=== PATIENT | male | born 1950 | race Caucasian/White ===

== ENCOUNTER → 2017-01-18 13:41 | Outpatient (CLI) | payer MEDICARE, OTHER ==
[2016-10-24 06:59] VITALS: BMI 37.0
[~2017-01-18 13:41] MED LIST: ARAVA10 MG PO; COZAAR100 MG PO; DITROPAN X10 MG/BOTT PO; DULERA 100 MCG8.8 GM INH; FLOMAX0.4 MG PO; FLUTICASONE PRO16 GM NASAL; FOLIC ACID1 MG PO; GLIMEPIRIDE2 MG PO; GLUCOPHAGE1000 MG PO; GLUCOPHAGE500 MG PO; IMODIUM 22 MG/10 ML PO; K-TAB10 MEQ PO; LASIX40 MG PO; SINGULAIR10 MG PO; TIROSINT50 MCG PO
== END | disposition home or self-care (01) ==
LOC: D.RAD 13:41
DX: R91.8 Other nonspecific abnormal finding of lung field (principal)

== ENCOUNTER → 2017-01-20 12:03 | Outpatient (CLI) | payer MEDICARE, OTHER ==
[2016-10-24 06:59] VITALS: BMI 37.0
== END | disposition home or self-care (01) ==
LOC: D.RAD 12:03
DX: M19.072 Primary osteoarthritis, left ankle and foot (principal)

== ENCOUNTER 2017-01-24 09:07 | Outpatient (CLI) | payer MEDICARE, OTHER ==
[~2017-01-24] VITALS: Ht 185.4 cm; Wt 120.5 kg
[2017-01-24 09:42] VITALS: BP 149/69; Ht 185.4 cm; Wt 120.5 kg
[2017-01-24 09:57] LABS: HEMATOCRIT 38.2 % (42.0-54.0); HEMOGLOBIN 12.9 g/dL (13.5-17.5); MCH 26.2 pg (26.0-34.0); MCHC 33.8 g/dL (31.0-37.0); MCV 77.5 fL (80.0-100.0); MEAN PLATELET VOLUME 8.2 fL (7.4-10.4); PLATELET COUNT 206 10x3/uL (130-400); RBC 4.93 10x6/uL (4.20-6.10); RDW 15.6 % (11.5-14.5); WBC 8.9 10x3/uL (4.8-10.8)
[2017-01-24 10:31] LABS: APTT 29.8 SECONDS (22.8-39.4); INR 1.06 (0.85-1.17); PROTIME 13.7 SECONDS (11.6-15.0)
[2017-01-24 10:43] LABS: EOSINOPHILS 2 % (0-7); LYMPHOCYTES 14 % (15-50); MONOCYTES 10 % (2-11); NEUTROPHILS 74 % (40-80)
[2017-01-24 11:13] LABS: PLATELET ESTIMATE NORMAL
--- NOTE | 2017-01-24 11:26 | NUR ---
1100-RECEIVED PT FROM ENDO LAB. PT SLEEPY BUT AROUSES TO VERBAL STIMULI. PY ON 2L VIA NC POX 96%. PT REMAINS NPO FOR THE NEXT 2 HOURS. PT DENEIS ANY NEEDS OR CONCERNS AT THIS TIME
--- NOTE | 2017-01-24 12:12 | NUR ---
1150 RECEIVED REPORT FROM ORLANDO RIVERA RN. PT SLEEPING. O2 AT 2L/NC VIA OXIMIZER. PT. SLEEPING WITH SNORING. HOB ELEVATED 30 DEGREES. HAS BEEN NPO. CALL LIGHT AT BEDSIDE. MONITORS ON.
--- NOTE | 2017-01-24 14:23 | NUR ---
1420 DC INSTS. REVIEWED VOICED UNDERSTANDING, RELEASED IN WC WITH ESCORT.
[2017-01-25 14:22] LABS: FUNGUS STAIN Final report (())
[2017-01-25 14:22] LABS: FUNGUS STAIN Final report (())
[2017-01-25 15:23] LABS: AFB SPECIMEN PROCESSING Not Indicated (())
[2017-01-25 15:23] LABS: AFB SPECIMEN PROCESSING Concentration (())
[2017-02-21 08:19] LABS: FUNGUS MYCOLOGY CULTURE Final report (())
[2017-02-21 08:19] LABS: FUNGUS MYCOLOGY CULTURE Final report (())
[2017-03-19 14:09] LABS: ACID FAST CULTURE Negative (()); ACID FAST SMEAR Negative (())
[2017-03-19 14:09] LABS: ACID FAST CULTURE Negative (()); ACID FAST SMEAR Negative (())
== END 2017-01-24 14:26 | disposition home or self-care (01) ==
LOC: D.OPS 09:07
PROVIDERS: Internal Medicine Pulmonary Disease
DX: J98.4 Other disorders of lung (principal); G47.33 Obstructive sleep apnea (adult) (pediatric); Z77.090 Contact with and (suspected) exposure to asbestos; J45.998 Other asthma; J44.9 Chronic obstructive pulmonary disease, unspecified; E11.9 Type 2 diabetes mellitus without complications; I10 Essential (primary) hypertension; E03.9 Hypothyroidism, unspecified; M25.572 Pain in left ankle and joints of left foot; E66.9 Obesity, unspecified; Z79.84 Long term (current) use of oral hypoglycemic drugs; Z79.899 Other long term (current) drug therapy; Z68.35 Body mass index [BMI] 35.0-35.9, adult

== ENCOUNTER → 2017-04-13 12:40 | Outpatient (CLI) | payer MEDICARE, OTHER ==
[2017-01-24 09:42] VITALS: BMI 35.0
== END | disposition home or self-care (01) ==
LOC: D.RAD 12:40
DX: J45.909 Unspecified asthma, uncomplicated (principal)

== ENCOUNTER → 2018-02-15 07:15 | Outpatient (CLI) | payer MEDICARE, OTHER ==
[2017-01-24 09:42] VITALS: BMI 35.0
== END | disposition home or self-care (01) ==
LOC: D.RT 02-06 09:00 → D.CT 02-06 10:00 → D.RT 07:15
DX: J45.909 Unspecified asthma, uncomplicated (principal)

== ENCOUNTER → 2018-04-18 11:00 | Outpatient (CLI) | payer MEDICARE, OTHER ==
[2017-01-24 09:42] VITALS: BMI 35.0
[2018-04-22 10:08] LABS: FUNGAL - ASP FLAVUS Negative (Neg:<1:1); FUNGAL - ASP NIGER Negative (Neg:<1:1); FUNGAL - ASPER FUMIGATUS Negative (Neg:<1:1)
[2018-04-25 16:13] LABS: HISTOPLASMA GAL MANNAN AG SER <0.5 (<0.5 ng/mL)
== END | disposition home or self-care (01) ==
LOC: D.LAB 08:00
PROVIDERS: Internal Medicine Pulmonary Disease
DX: R91.8 Other nonspecific abnormal finding of lung field (principal)

== ENCOUNTER → 2019-02-27 11:13 | Outpatient (CLI) | payer MEDICARE, OTHER ==
[2017-01-24 09:42] VITALS: BMI 35.0
== END | disposition home or self-care (01) ==
LOC: D.HCCARDIO 11:13
PROVIDERS: ATTEND Internal Medicine Cardiovascular Disease
DX: R06.02 Shortness of breath (principal)

== ENCOUNTER 2019-03-12 11:25 | Outpatient (CLI) | payer MEDICARE, OTHER ==
[~2019-03-12] VITALS: Ht 185.4 cm; Wt 115.5 kg
--- NOTE | ~2019-03-12 | HEMODYNAMI ---
PATIENT:ONUR SHERMAN MEDICAL RECORD: [id number] : 48 LOCATION:[facility] ADMISSION DATE: 03/12/19 Generatedon:03/12/201914:34 Patient name: ONUR SHERMAN Patient #: [id number] SSN: : 1950 Date of study: 03/12/2019 Page: Of Hemodynamic Procedure Report Patient Data Patient Demographics Procedure consent was obtained First Name: ONUR Gender: Male Last Name: LANE : 1950 [facility] Initial: KEE Age: 68 year(s) Patient #: [id number] Race: Unknown Additional ID: [id number] Contact details [address]: [address] [place] [address] State: [place] City: [place] Zip code: [address] Admission Admission Data Admission Date: 03/12/2019 Admission Time: 11:25 Procedure Procedure Types Cath Procedure Diagnostic Procedure LHC LHC w/Coronaries Sedation Charges Moderate Sedation up to 15 minutes PCI Procedure Coronary Stent Coronary Stent Initial Procedure Description Procedure Date Procedure Date: 03/12/2019 Procedure Start Time: 14:01 Procedure End Time: 14:28 Procedure Staff Name Function Adarsh Huggins MD Performing Physician Kenia Mckeon RT Monitor Henna Rojo RT Scrub Presley Pearson RN Nurse Procedure Data Cath Procedure Fluoroscopy Diagnostic fluoroscopy Total fluoroscopy Time: 6 time: 6 min min Diagnostic fluoroscopy Total fluoroscopy dose: dose: 1108 mGy 1108 mGy Contrast Material Contrast Material Type Amount (ml) Isovue 300 163 Entry Location Entry Primary Successful Side Size Upsize Upsize Entry Closure Succes sful Closure Location (Fr) 1 (Fr) 2 (Fr) Remarks Device Remarks Femoral Right 5 Fr 6 Fr Exoseal artery Short Estimated blood loss: 5 ml Diagnostic catheters Device Type Used For End Catheter Placement MULTIPACK JL 4.0 5Fr Left Coronary catheter Angiography MULTIPACK 3DRC 5Fr Right Coronary catheter Angiography MULTIPACK Pigtail 5 Fr LV Angiography catheter Procedure Complications No complications Procedure Medications Medication Administration Route Dosage Oxygen etCO2 Nasal cannula 2 l/min Lidocaine 2% added to field 20 Heparin Flush Bag added to field 2 bags (1000units/500ml NS) 0.9% NaCl I.V. 100 ml/hr Versed I.V. 1 mg Fentanyl I.V. 50 mcg Versed I.V. 1 mg Fentanyl I.V. 50 mcg Fentanyl I.V. 50 mcg Fentanyl I.V. 50 mcg Heparin Bolus I.V. 19511 units Plavix P.O. 600 mg Hemodynamics Rest Heart Rate: 68 (bpm) Pressure Samples Time Site Value (mmHg) Purpose Heart Use Rate(bpm) 14:11 LV 136/7,14 Snapshot 65 14:12 AO 134/62(90) Pullback 52 14:12 LV 137/6,42 Pullback 52 Gradients Valve Time Site 1 Site 2 Mean SEP/DFP Peak To Heart Use (mmHg) (sec/min) Peak Rate (mmHg) (bpm) Aortic 14:12 LV AO 9 5 3 52 137/6,42 134/62(90) Calculations Valve P-P Mean Valve Index Valve Source Name Gradient Area Flow (cm2) Aortic 3 9 3 9 Snapshots Pre Cath Intra NCS Post Cath Vital Signs Time Heart Resp SPO2 etCO2 NIBP (mmHg) Rhythm Pain Sedation Rate (ipm) (%) (mmHg) Status Level (bpm) 13:50:18 69 25 93 0 146/73(116) NSR 0 (11) 10(A) , No pain 13:54:41 69 22 94 10.5 143/70(106) NSR 0 (11) 10(A) , No pain 13:59:06 68 22 92 24 135/69(103) NSR 0 (11) 10(A) , No pain 14:03:26 66 25 93 23.2 138/67(108) NSR 0 (11) 10(A) , No pain 14:07:48 66 21 94 34.5 130/70(110) NSR 0 (11) 9(A) , No pain 14:12:06 75 23 92 22.5 124/73(98) NSR 0 (11) 9(A) , No pain 14:16:22 70 20 94 23.2 123/70(100) NSR 0 (11) 9(A) , No pain 14:20:34 75 21 93 24.7 117/69(97) NSR 0 (11) 9(A) , No pain 14:24:46 69 25 93 27.7 130/75(103) NSR 0 (11) 10(A) , No pain Medications Time Medication Route Dose Verified Delivered Reason Notes Effectiveness by by 13:56:16 Oxygen etCO2 2 Adarsh Buffie used for Nasal l/min Navin Pearson RN procedure cannula 13:56:25 Lidocaine 2% added 20ml Adarsh Adarsh for local to vial Navin Huggins MD anesthetic field 13:56:32 Heparin Flush added 2 Adarsh Adarsh used for Bag to bags Navin Huggins MD procedure (1000units/500ml field NS) 13:56:42 0.9% NaCl I.V. 100 Adarsh Buffie Per physician ml/hr Navin Pearson RN 13:58:03 Fentanyl I.V. 50 Adarsh Buffie for sedation mcg Navin Pearson RN 13:58:57 Versed I.V. 1 mg Adarsh Buffie for sedation Navin Pearson RN 14:03:50 Versed I.V. 1 mg Adarsh Buffie for sedation Navin Pearson RN 14:03:54 Fentanyl I.V. 50 Adarsh Buffie for sedation mcg Navin Pearson RN 14:08:16 Fentanyl I.V. 50 Adarsh Buffie for sedation mcg Navin Pearson RN 14:13:23 Fentanyl I.V. 50 Adarsh Buffie for sedation mcg Navin Pearson RN 14:16:50 Heparin Bolus I.V. 55614 Adarsh Buffie for verif ied units Navin Pearson RN anticoagulation with dr huggins 14:31:22 Plavix P.O. 600 Adarsh Buffie for mg Navin Pearson RN antiplatelet therapy Procedure Log Time Note 13:34:56 Diagnostic Cath Status : Elective 13:35:33 Presley Pearson RN sent for patient. Start room use. 13:35:34 Time tracking: Regular hours (M-F 7:00 - 5:00) 13:35:39 Plan of Care:Hemodynamics will remain stable., Cardiac rhythm will remain stable., Comfort level will be maintained., Respiratory function will remain adequate., Patient/ family verbilizes understanding of procedure., Procedure tolerated without complication., Recovers from procedure without complications.. 13:39:58 Patient received from Pre/Post Procedure Room to [facility] 3 Alert and oriented. Tansferred to table in Supine position. 13:39:59 Warm blankets applied, and akiko hugger turned on for patient comfort. 13:40:00 Correct patient and procedure confirmed by team. 13:40:01 Signed procedure consent form obtained from patient. 13:40:02 ECG and BP/O2 sat monitors applied to patient. 13:49:05 Vital chart was started 13:49:06 Baseline sample Acquired. 13:49:10 Rhythm: sinus rhythm 13:49:22 H&P Date Dictated: 03/12/2019 Within 30 days and on chart., H&P Addendum completed by physician on day of procedure. (MUST COMPLETE FOR ALL OUTPATIENTS). 13:49:24 Pre-procedure instructions explained to patient. 13:49:24 Pre-op teaching completed and patient verbalized understanding. 13:49:25 Family in waiting room. 13:49:28 Patient NPO since Midnight. 13:49:29 Is the patient allergic to Iodine/contrast media? No. 13:49:31 Was the patient premedicated? No 13:49:32 Is patient on blood thinner?No 13:49:33 Patient diabetic? No. 13:49:36 Previous problem with sedation/anesthesia? No ? 13:49:38 Snore? Yes 13:49:39 Sleep apnea? No 13:49:40 Deviated septum? No 13:49:41 Opens mouth fully? Yes 13:49:42 Sticks out tongue? Yes 13:49:50 Airway obstruction? Yes asbestosis 13:49:54 Dentures? Yes out 13:49:58 Pre procedure: right dorsailis pedis pulse 2+ Normal; easily identifiable; not easily obliterated 13:50:02 Pre procedure: left dorsailis pedis pulse 2+ Normal; easily identifiable; not easily obliterated 13:50:04 Patient pain scale 0/10 ?. 13:50:09 IV patent on arrival in left forearm with 0.9% NaCl at [facility]. 13:50:11 Lab results completed and on chart. 13:50:15 Right groin area was prepped with chlora-prep and draped in sterile fashion 13:50:16 Alarms reviewed by R. N. 13:50:16 Sharps counted by scrub and verified by R.N. 13:50:18 Physician arrived 13:50:18 --------ALL STOP TIME OUT------ 13:50:18 Final Timeout: patient, procedure, and site verified with staff and physician. All members of the team are in agreement. 13:50:20 Right groin site verified by team. 13:50:23 Maximum allowable Isovue 300 dose 300ml. Physician notified. (300ml for normal creatinines. For patients with creatinine of 1.7 or higher multiply weight(kg) x 5 divided by creatinine.) 13:50:28 Fire Safety Assessment: A--An alcohol-based skin anteseptic being used preoperatively., C--Open oxygen or nitrous oxide is being used., D--An ESU, laser, or fiber-optic light is being used. 13:50:31 Physical assessment completed. ASA score P 2 - A patient with mild systemic disease as per Adarsh Huggins MD. 13:50:35 Sedation plan: IV Moderate Sedation Medication:Versed, Fentanyl 13:53:49 Use device set Femoral Dx 13:53:51 ACIST Syringe (03421) opened to sterile field. 13:53:51 Bag Decanter (2002S) opened to sterile field. 13:53:51 Medline Cath Pack ([id number]) opened to sterile field. 13:53:52 DIAGNOSTIC WIRE .035 260cm J wire (433402) opened to sterile field. 13:53:53 ACIST Hand Control (33122) opened to sterile field. 13:53:54 ACIST Manifold (13849) opened to sterile field. 13:53:54 DIAGNOSTIC Multipack 5Fr catheter set (SI1108) opened to sterile field. 13:53:54 Tegaderm 4 x 4 (1626W) opened to sterile field. 13:53:56 SHEATH 5FR [place] (PJG095) opened to sterile field. 13:56:16 Oxygen 2 l/min etCO2 Nasal cannula was administered by Presley Pearson RN; used for procedure; 13:56:25 Lidocaine 2% 20ml vial added to field was administered by Adarsh Huggins MD; for local anesthetic; 13:56:32 Heparin Flush Bag (1000units/500ml NS) 2 bags added to field was administered by Adarsh Huggins MD; used for procedure; 13:56:42 0.9% NaCl 100 ml/hr I.V. was administered by Presley Pearson RN; Per physician; 13:58:03 Fentanyl 50 mcg I.V. was administered by Presley Pearson RN; for sedation; 13:58:57 Versed 1 mg I.V. was administered by Presley Pearson RN; for sedation; 14:01:37 Procedure started. 14:01:58 Local anesthetic to right femoral artery with Lidocaine 2% by Adarsh Huggins MD.INITIAL ACCESS ONLY 14:02:07 A 5 Fr sheath was inserted into the Right Femoral artery 14:03:04 A MULTIPACK JL 4.0 5Fr catheter was advanced over the wire and used for Left Coronary Angiography. 14:03:50 Versed 1 mg I.V. was administered by Presley Pearson RN; for sedation; 14:03:54 Fentanyl 50 mcg I.V. was administered by Presley Pearson RN; for sedation; 14:04:50 LCA angiography performed. 14:04:55 Injector settings: Ml/sec: 3, Volume: 6, 14:08:16 Fentanyl 50 mcg I.V. was administered by Presley Pearson RN; for sedation; 14:09:24 Catheter removed. 14:09:29 A MULTIPACK 3DRC 5Fr catheter was advanced over the wire and used for Right Coronary Angiography. 14:09:38 RCA angiography performed. 14:09:41 Injector settings: Ml/sec: 3, Volume: 6, 14:10:14 Catheter removed. 14:10:20 A MULTIPACK Pigtail 5 Fr catheter was advanced over the wire and used for LV Angiography. 14:12:16 LV hemodynamics recorded. 14:12:17 LV gram done using PENG 14:12:21 Injector settings: Ml/sec: 5, Volume: 15, 14:12:27 EF : 55 % 14:12:30 Catheter removed. 14:12:57 SHEATH 6FR [place] (RIP983) opened to sterile field. 14:12:58 INFLATOR Merit BasixCompak (NG1609) opened to sterile field. 14:12:58 TUBING High Pressure Extension Tubing (Navin) (BB0522H) opened to sterile field. 14:12:59 BMW 300cm [place] 2 J wire (0165158V) opened to sterile field. 14:13:18 GUIDE 6FR XBLAD 3.5 catheter ([id number]) opened to sterile field. 14:13:23 Fentanyl 50 mcg I.V. was administered by Presley Pearson RN; for sedation; 14:14:16 Sheath upsized to a 6 Fr Short. 14:14:25 6 Fr xblad 3.5 guide catheter was inserted over the wire 14:14:32 choice pt wire advanced. 14:14:37 Wire advanced across lesion. 14:16:50 Heparin Bolus 42549 units I.V. was administered by Presley Pearson RN; for anticoagulation; verified with dr huggins 14:23:07 Place stent Inflation Number: 1 A LYNDA OTW 3.5 x 18 stent ([id number]) was prepped and advanced across the Mid CX. The stent was deployed at 16 HERIBERTO for 0:10 (min:sec). 14:25:52 Stent catheter was removed intact over wire. 14:26:02 Wire removed. 14:26:03 Guide catheter removed. 14:26:10 EXOSEAL 6Fr (EX600) opened to sterile field. 14:26:35 Sheath removed intact; hemostasis achieved with Exoseal to the Right Femoral artery. 14:26:37 Procedure ended.(Physican Out) 14:26:55 Fluoroscopy time 06.00 minutes. 14:27:03 Flurop Dose total: 1108 14:27:03 Fluoroscopy dose: 1108 mGy 14:27:06 Contrast amount:Isovue 300 163ml. 14:27:08 Sharps counted by scrub and verified by R.N. 14:27:09 Insertion/operative site no bleeding no hematoma. 14:27:12 Post-op/insertion site Right Femoral artery dressed using a 4 x 4 and Tegaderm. 14:27:15 Post right femoral artery:stable 14:27:17 Post Procedure Pulses reassessed and unchanged 14:27:19 Post procedure rhythm: unchanged. 14:27:23 Estimated blood loss: 5 ml 14:27:34 Post procedure instruction explained to patient.Patient verbalizes understanding. 14:27:34 Patient needs reinforcement of post procedure teaching. 14:27:45 Procedure type changed to Cath procedure, Diagnostic procedure, LHC, LHC w/Coronaries, Sedation Charges, Moderate Sedation up to 15 minutes, PCI procedure, Coronary Stent, Coronary Stent Initial 14:27:46 Procedure and supply charges have been captured, reviewed, submitted and are correct. 14:27:51 Procedure Complication : No complications 14:27:53 Vital chart was stopped 14:27:54 See physician's report for complete and final results. 14:28:00 Report given to Pre/Post Procedure Room. 14:28:03 Patient transfered to Pre/Post Procedure Room with Stretcher. 14:28:05 Procedure ended. 14:28:05 Full Disclosure recording stopped 14:28:11 ACC-PCI Only Patient was given prescriptions, or instructed by Adarsh Huggins MD to start/continue the following medications upon discharge: Plavix 14:28:13 End room use (Document Last) 14:31:22 Plavix 600 mg P.O. was administered by Presley Pearson RN; for antiplatelet therapy; Intervention Summary Intervention Notes Time ActionType Lesion and Equipment Action# Pressure Duration Attributes Used 14:23:07 Place stent Mid CX LYNDA OTW 3.5 1 16 00:10 x 18 stent ([id number]) Device Usage Item Name Manufacture Quantity Catalog Hospital Part Current Mini mal Lot# / Number Charge Number Stock Stock Serial# Code ACIST Syringe Acist 1 [id number] 154650 290282 20 (83271) Medical Systems Inc Bag Decanter Microtek 1 2001S 243788 35535 148126 5 (2001S) Medical Inc. Medline Cath Medline 1 [id number] 006633 76040 923108 5 Pack ([id number]) DIAGNOSTIC St Tian 1 224463 072644 185938 316847 30 WIRE .035 260cm J wire (348210) ACIST Hand Acist 1 41563 040942 126125 988708 5 Control Medical (38195) Systems Inc ACIST Acist 1 21532 896801 024461 053630 5 Manifold Medical (73193) Systems Inc DIAGNOSTIC Cardinal 1 BL0767 673948 04452 087730 30 Multipack 5Fr Health catheter set (RA3210) Tegaderm 4 x 3M 1 1626W 821425 601951 808078 5 4 (1626W) SHEATH 5FR Terumo 1 SML642 484514 744897 732343 5 [place] (JNE301) MULTIPACK JL Cardinal 1 440110 5 4.0 5Fr Health catheter MULTIPACK Cardinal 1 981905 5 3DRC 5Fr Health catheter MULTIPACK Cardinal 1 935516 5 Pigtail 5 Fr Health catheter SHEATH 6FR Terumo 1 WHI289 137095 447719 682521 40 [place] (UCL270) INFLATOR Merit 1 YD9255 273187 837128 670791 15 Merit Medical BasixCompak (KP6009) TUBING High Merit 1 [id number] 361413 44112 346484 10 Pressure Medical Extension Tubing (Huggins) (NK5567R) BMW 300cm Christ[place] 1 [id number] 817684 192827 811043 5 [place] 2 J Vascular wire ([id number]) GUIDE 6FR Cardinal 1 [id number] 788751 216634 404636 10 XBLAD 3.5 Health catheter (50266761) LYNDA OTW 3.5 Medtronic 1 [id number] 960508 3596676 656819 5 [id number] x 18 stent ([id number]) EXOSEAL 6Fr Cardinal 1 EX600 624137 559064 267113 10 (EX600) Health Signature Audit [place] Stage Time Signature Unsigned Intra-Procedure 03/12/2019 Kenia Mckeon 2:34:22 PM RT(R) Signatures Monitor : Kenia Mckeon RT Signature : Date : Time : [address] [place] [address]
[2019-03-12] MEDS ORDERED: COLESTID1 GM PO (11:37)
[2019-03-12] MEDS ORDERED: NOVOLOG INJ FLE SC (11:39)
[2019-03-12] MEDS ORDERED: LEVEMIR FL100 UNIT/1 SC (11:39)
[2019-03-12] MEDS ORDERED: OMEPRAZOLE20 M1 PO (11:39)
[2019-03-12] MEDS ORDERED: MELATONIN10 M1 PO (11:40)
[2019-03-12 11:53] VITALS: BP 129/61; Ht 185.4 cm; Wt 115.5 kg
[2019-03-12 12:09] LABS: BASOPHILS 0.4 % (0-2); EOSINOPHILS 3.5 % (0-7); HEMATOCRIT 36.8 % (42.0-54.0); HEMOGLOBIN 12.1 g/dL (13.5-17.5); IMMATURE GRANULOCYTES 0.3 % (0-5); LYMPHOCYTES 26.1 % (15-50); MCHC 32.9 g/dL (31.0-37.0); MCV 73.5 fL (80.0-100.0); MEAN PLATELET VOLUME 8.3 fL (7.4-10.4); MONOCYTES 9.7 % (2-11); RBC 5.01 10x6/uL (4.20-6.10); RDW 16.1 % (11.5-14.5); WBC 9.7 10x3/uL (4.8-10.8)
[2019-03-12 12:13] LABS: MCH 24.3 pg (26.0-34.0); PLATELET COUNT 270 10x3/uL (130-400)
[2019-03-12 12:21] LABS: CALC OSMOLALITY 275 mosm/kg (275-300); CALCIUM 8.7 mg/dL (8.5-10.1); CARBON DIOXIDE 27.7 mmol/L (21.0-32.0); CHLORIDE - SERUM 102 mmol/L (98-107); CREATININE - SERUM 0.8 mg/dL (0.6-1.3); GLUCOSE 145 mg/dL (74-106); POTASSIUM - SERUM 3.9 mmol/L (3.5-5.1); SODIUM 136 mmol/L (136-145); UREA NITROGEN 16 mg/dL (7-18); eGFR NON AFRICAN AMERICAN > 90 mL/min (90-120)
[2019-03-12] MEDS ORDERED: PLAVIX75 MG PO (14:50)
[2019-03-12] MEDS ORDERED: BAYER CHEWABLE81 MG PO (14:50)
--- NOTE | 2019-03-12 15:00 | NUR ---
2L NC, NO RESP DISTRESS. RIGHT GROIN 6F EXOSEAL CDI, NO BLEEDING OR HEMATOMA NOTED. NO C/O PAIN OR NAUSEA. VSS. FAMILY AT BEDSIDE, CALL LIGHT WITHIN REACH.
--- NOTE | 2019-03-12 15:30 | NUR ---
RESTING QUIETLY WITH EYES CLOSED. RIGHT GROIN 6F EXOSEAL CDI, NO BLEEDING OR HEMATOMA NOTED. DENIES ANY NEEDS. VSS. WILL CONTINUE TO MONITOR.
--- NOTE | 2019-03-12 15:45 | NUR ---
CONTINUES TO REST COMFORTABLY WITH NO C/O. RIGHT GROIN 6F EXOSEAL CDI, NO BLEEDING OR HEMATOMA NOTED. NO NEEDS VOICED AT THIS TIME. VSS. CALL LIGHT WITHIN REACH.
--- NOTE | 2019-03-12 16:15 | NUR ---
RIGHT GROIN 6F EXOSEAL CDI, NO BLEEDING OR HEMATOMA NOTED. 2L NC WITH NO RESP DISTRESS. NO C/O OR NEEDS VOICED. VSS. CALL LIGHT WITHIN REACH.
--- NOTE | 2019-03-12 17:25 | NUR ---
HOB ELEVATED 30 DEGREES. RIGHT GROIN 6F EXOSEAL CDI, NO BLEEDING OR HEMATOMA NOTED. SIPPING ON DRINK AND EATING SANDWICH WITH NO C/O NAUSEA. VSS. WILL CONTINUE TO MONITOR.
--- NOTE | 2019-03-12 18:10 | NUR ---
LEFT PIV D/C'D WITH CATHETER INTACT, BAND AID TO SITE. UP TO BEDSIDE TO GET DRESSED. VOIDED 300CC INTO URINAL.
--- NOTE | 2019-03-12 18:20 | NUR ---
DISCHARGE INSTRUCTIONS GIVEN TO PT AND FAMILY, BOTH VERBALIZED UNDERSTANDING. [facility] PRESCRIPTION CALLED INTO [facility] PER PT REQUEST.
--- NOTE | 2019-03-12 18:30 | NUR ---
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 LEFT FACILITY WITH FAMILY AND ALL PERSONAL BELONGINGS.
== END 2019-03-12 18:30 | disposition home or self-care (01) ==
LOC: D.CATH 11:25
PROVIDERS: ATTEND Internal Medicine Cardiovascular Disease
DX: I25.119 Atherosclerotic heart disease of native coronary artery with unspecified angina pectoris (principal); R94.39 Abnormal result of other cardiovascular function study; Z01.812 Encounter for preprocedural laboratory examination
CPT/HCPCS: 93458; C9600

== ENCOUNTER → 2019-04-02 11:09 | Outpatient (CLI) | payer MEDICARE, OTHER ==
[~2019-04-02] VITALS: Ht 185.4 cm; Wt 115.5 kg
--- NOTE | ~2019-04-02 | HEMODYNAMI ---
PATIENT:ONUR SHERMAN MEDICAL RECORD: [id number] : 48 LOCATION:[facility] ADMISSION DATE: 04/02/19 Generatedon:04/02/201915:16 Patient name: ONUR SHERMAN Patient #: [id number] SSN: : 1950 Date of study: 04/02/2019 Page: Of Hemodynamic Procedure Report Patient Data Patient Demographics Procedure consent was obtained First Name: ONUR Gender: Male Last Name: LANE : 1950 [facility] Initial: KEE Age: 68 year(s) Patient #: [id number] Race: Unknown Additional ID: [id number] Contact details Address: [address] [place] [address] State: [place] City: [place] Zip code: [address] Past Medical History Allergies Allergen Reaction Date Comments Reported Penicillins 04/02/2019 Admission Admission Data Admission Date: 04/02/2019 Admission Time: 11:09 Height (in.): 70 BSA: 2.32 (m2) Height (cm.): 177.8 BMI: 36.73 (kg/m2) Weight (lbs.): 256 Weight (kg.): 116.12 Lab Results Lab Result Date: 04/02/2019 Lab Result Time: 0:00 Biochemistry Name Units Result Min Max BUN mg/dl 17 --(---*)-- 7 18 Creatinine mg/dl 0.8 --(-*--)-- 0.6 1.3 CBC Name Units Result Min Max Hematocrit % 35.8 *-(----)-- 42 54 Hemoglobin g/dl 11.5 *-(----)-- 13.5 17.5 Procedure Procedure Types Cath Procedure Diagnostic Procedure FFR/IVUS FFR Initial Sedation Charges Moderate Sedation up to 30 minutes PCI Procedure Coronary Stent Coronary Stent Initial Procedure Description Procedure Date Procedure Date: 04/02/2019 Procedure Start Time: 14:34 Procedure End Time: 15:12 Procedure Staff Name Function Adarsh Holden MD Performing Physician Presley Pearson RN Nurse Anna Rivera RT Monitor Nacho Leonardo RT Scrub Procedure Data Cath Procedure Fluoroscopy Diagnostic fluoroscopy Total fluoroscopy Time: 8.9 time: 8.9 min min Diagnostic fluoroscopy Total fluoroscopy dose: dose: 2021 mGy 2022 mGy Contrast Material Contrast Material Type Amount (ml) Isovue 300 134 Entry Location Entry Primary Successful Side Size Upsize Upsize Entry Closure Succes sful Closure Location (Fr) 1 (Fr) 2 (Fr) Remarks Device Remarks Femoral Right 6 Fr Exoseal artery Short Estimated blood loss: 10 ml Procedure Complications No complications Procedure Medications Medication Administration Route Dosage Oxygen etCO2 Nasal cannula 2 l/min Lidocaine 2% added to field 20 Heparin Flush Bag added to field 2 bags (1000units/500ml NS) 0.9% NaCl I.V. 100 ml/hr Versed I.V. 2 mg Fentanyl I.V. 100 mcg Heparin Bolus I.V. 15492 units Fentanyl I.V. 50 mcg Nitroglycerin IC/IA I.C. 100 mcg Fentanyl I.V. 50 mcg Nitroglycerin IC/IA I.C. 100 mcg Hemodynamics Rest BSA: 2.32 (m2) HGB: 11.5 (g/dl) O2 Consumption: Estimated: 267.16 (ml/min) O2 Co nsumption indexed: Estimated:115.16 (ml/min/m) Heart Rate: 68 (bpm) Snapshots Pre Cath Intra NCS Post Cath Vital Signs Time Heart Resp SPO2 etCO2 NIBP (mmHg) Rhythm Pain Sedation Rate (ipm) (%) (mmHg) Status Level (bpm) 14:20:46 67 23 96 20.2 143/71(114) NSR 0 (11) 10(A) , No pain 14:25:08 68 15 98 18.7 144/71(105) NSR 0 (11) 10(A) , No pain 14:29:31 70 23 94 0 139/73(114) NSR 0 (11) 10(A) , No pain 14:33:46 67 10 97 18.7 131/72(106) NSR 0 (11) 10(A) , No pain 14:38:07 67 23 95 21.7 147/68(101) NSR 0 (11) 9(A) , No pain 14:42:24 71 25 96 19.4 128/65(108) NSR 0 (11) 9(A) , No pain 14:46:43 69 25 95 20.2 126/63(99) NSR 0 (11) 9(A) , No pain 14:50:59 72 22 95 30.7 131/65(94) NSR 0 (11) 9(A) , No pain 14:55:15 69 20 96 18.7 123/62(100) NSR 0 (11) 9(A) , No pain 14:59:33 71 19 95 19.4 126/65(101) NSR 0 (11) 9(A) , No pain 15:03:51 71 25 96 19.4 126/66(99) NSR 0 (11) 10(A) , No pain 15:08:11 71 16 96 20.2 127/61(95) NSR 0 (11) 10(A) , No pain 15:12:29 69 32 96 17.9 135/62(94) NSR 0 (11) 10(A) , No pain Medications Time Medication Route Dose Verified Delivered Reason Note s Effectiveness by by 14:23:49 Oxygen etCO2 2 Adarsh Buffie used for Nasal l/min Navin Pearson RN procedure cannula 14:23:59 Lidocaine 2% added 20ml Adarsh Buffie for local to vial Navin Pearson RN anesthetic field 14:24:05 Heparin Flush added 2 bags Adarsh Buffie used for Bag to Navin Pearson RN procedure (1000units/500ml field NS) 14:24:14 0.9% NaCl I.V. 100 Adarsh Buffie Per physician ml/hr Navin Pearson RN 14:33:58 Versed I.V. 2 mg Adarsh Buffie for sedation Navin Pearson RN 14:34:26 Fentanyl I.V. 100 Adarsh Buffie for sedation mcg Navin Pearson RN 14:36:25 Heparin Bolus I.V. 11,500 Adarsh Buffie for VERI FIED units Navin Pearson RN anticoagulation WITH DR HOLDEN 14:44:33 Fentanyl I.V. 50 mcg Adarsh Buffie for sedation Navin Pearson RN 14:49:06 Nitroglycerin I.C. 100 Adarsh Adarsh for IC/IA mcg Navin Holden MD vasodilation 14:55:49 Fentanyl I.V. 50 mcg Adarsh Buffie for sedation Navin Pearson RN 15:03:11 Nitroglycerin I.C. 100 Adarsh Altamirano for IC/IA mcg Navin Holden MD vasodilation Procedure Log Time Note 14:05:27 Signed procedure consent form obtained from patient. 14:05:29 Diagnostic Cath status Elective 14:05:31 Presley Pearson RN sent for patient. Start room use. 14:05:31 Time tracking: Regular hours (M-F 7:00 - 5:00) 14:05:36 Plan of Care:Hemodynamics will remain stable., Cardiac rhythm will remain stable., Comfort level will be maintained., Respiratory function will remain adequate., Patient/ family verbilizes understanding of procedure., Procedure tolerated without complication., Recovers from procedure without complications.. 14:06:06 H&P Date Dictated: 03/22/2019 Within 30 days and on chart., H&P Addendum completed by physician on day of procedure. (MUST COMPLETE FOR ALL OUTPATIENTS). 14:06:14 Patient allergic to Penicillins 14:06:29 Patient Weight : 256 lbs 14:06:33 Patient Height : 70 inches 14:12:22 Patient received from Pre/Post Procedure Room to CCL 1 Alert and oriented. Tansferred to table in Supine position. 14:12:24 Warm blankets applied, and akiko hugger turned on for patient comfort. 14:12:24 Correct patient and procedure confirmed by team. 14:12:25 ECG and BP/O2 sat monitors applied to patient. 14:19:35 Vital chart was started 14:19:37 Baseline sample Acquired. 14:19:41 Rhythm: sinus rhythm 14:19:42 Full Disclosure recording started 14:19:43 Pre-procedure instructions explained to patient. 14:19:43 Pre-op teaching completed and patient verbalized understanding. 14:19:45 Family in patients room. 14:19:46 Patient NPO since Midnight. 14:19:49 Is patient on blood thinner?Yes 14:19:52 ACC The patient was administered the following blood thiners within the last 24 hours: ACCPlavix 14:19:54 Patient diabetic? Yes. 14:20:00 If diabetic: On Metformin? No 14:20:06 Previous problem with sedation/anesthesia? No ? 14:20:09 Snore? Yes 14:20:10 Sleep apnea? No 14:20:12 Deviated septum? No 14:20:13 Opens mouth fully? Yes 14:20:14 Sticks out tongue? Yes 14:20:16 Airway obstruction? Yes COPD 14:20:34 Dentures? No ? 14:20:36 Pre procedure: right dorsailis pedis pulse 2+ Normal; easily identifiable; not easily obliterated 14:20:39 Patient pain scale 0/10 ?. 14:20:43 IV patent on arrival in right hand with 0.9% NaCl at [facility]. 14:20:45 Lab results completed and on chart. 14:21:06 Lab Result : BUN 17 mg/dl 14:21: Lab Result : Creatinine 0.8 mg/dl 14:21:06 Lab Result : Hemoglobin 11.5 g/dl 14:21: Lab Result : Hematocrit 35.8 % 14:21:10 Right groin area was prepped with chlora-prep and draped in sterile fashion 14:21:15 Alarms reviewed by R. N. 14:21:15 Sharps counted by scrub and verified by R.N. 14:21:19 Use device set CATH PACK 14:21:20 ACIST Syringe (45193) opened to sterile field. 14:21:20 ACIST Hand Control (77631) opened to sterile field. 14:21:21 ACIST Manifold (74674) opened to sterile field. 14:21:21 Medline Cath Pack ([id number]) opened to sterile field. 14:21:22 Bag Decanter (2002) opened to sterile field. 14:21:22 DIAGNOSTIC WIRE .035 260cm J wire (007749) opened to sterile field. 14:23:49 Oxygen 2 l/min etCO2 Nasal cannula was administered by Presley Pearson RN; used for procedure; 14:23:59 Lidocaine 2% 20ml vial added to field was administered by Presley Pearson RN; for local anesthetic; 14:24:05 Heparin Flush Bag (1000units/500ml NS) 2 bags added to field was administered by Presley Pearson RN; used for procedure; 14:24:14 0.9% NaCl 100 ml/hr I.V. was administered by Presley Pearson RN; Per physician; 14:33:17 --------ALL STOP TIME OUT------ 14:33:17 Final Timeout: patient, procedure, and site verified with staff and physician. All members of the team are in agreement. 14:33:18 Right groin site verified by team. 14:33:20 Maximum allowable Isovue 300 dose 300ml. Physician notified. (300ml for normal creatinines. For patients with creatinine of 1.7 or higher multiply weight(kg) x 5 divided by creatinine.) 14:33:24 Fire Safety Assessment: A--An alcohol-based skin anteseptic being used preoperatively., C--Open oxygen or nitrous oxide is being used., D--An ESU, laser, or fiber-optic light is being used. 14:33:28 Physical assessment completed. ASA score P 2 - A patient with mild systemic disease as per Adarsh Holden MD. 14:33:31 Sedation plan: IV Moderate Sedation Medication:Versed, Fentanyl 14:33:34 Zero performed for pressure channel P1 14:33:50 SHEATH 6FR [place] (TMC708) opened to sterile field. 14:33:50 INFLATOR Merit BasixCompak (IS0683) opened to sterile field. 14:33:50 TUBING High Pressure Extension Tubing (Navin) ([id number]) opened to sterile field. 14:33:51 GUIDE 6FR XBLAD 3.5 catheter ([id number]) opened to sterile field. 14:33:56 Procedure started. 14:33:58 Versed 2 mg I.V. was administered by Presley Pearson RN; for sedation; 14:34:26 Fentanyl 100 mcg I.V. was administered by Presley Pearson RN; for sedation; 14:34:31 Local anesthetic to right femoral artery with Lidocaine 2% by Adarsh Holden MD.INITIAL ACCESS ONLY 14:34:52 A 6 Fr Short sheath was inserted into the Right Femoral artery 14:35:02 6 Fr XBLAD 3.5 guide catheter was inserted over the wire 14:35:22 BMW 300cm Straight [place] 2 wire ([id number]) opened to sterile field. 14:36:25 Heparin Bolus 11,500 units I.V. was administered by Presley Pearson RN; for anticoagulation; VERIFIED WITH DR HOLDEN 14:39:55 Stryker Verrata Plus pressure wire (57337R) opened to sterile field. 14:43:00 Zero performed for pressure channel P1 14:44:33 Fentanyl 50 mcg I.V. was administered by Presley Pearson RN; for sedation; 14:45:36 FFR/IFR wire advanced. 14:46:25 LAD lesion measured at 0.85 with IFR 14:49:06 Nitroglycerin IC/IA 100 mcg I.C. was administered by Adarsh Holden MD; for vasodilation; 14:55:03 PRESSURE WIRE REMOVED 14:55:13 BMW 300 wire advanced. 14:55:15 Wire advanced across lesion. 14:55:49 Fentanyl 50 mcg I.V. was administered by Presley Pearson RN; for sedation; 14:58:08 Place stent Inflation Number: 1 A LYNDA OTW 2.75 x 22 stent ([id number]) was prepped and advanced across the Mid LAD. The stent was deployed at 17 HERIBERTO for 0:10 (min:sec). 14:59:26 Stent catheter was removed intact over wire. 15:02:42 Place stent Inflation Number: 2 A LYNDA OTW 3.0 x 26 stent ([id number]) was prepped and advanced across the Mid LAD. The stent was deployed at 10 HERIBERTO for 0:10 (min:sec). 15:03:07 Stent catheter was removed intact over wire. 15:03:11 Nitroglycerin IC/IA 100 mcg I.C. was administered by Adarsh Holden MD; for vasodilation; 15:06:17 Wire removed. 15:06:17 Guide catheter removed. 15:06:22 EXOSEAL 6Fr (EX600) opened to sterile field. 15:07:43 Sheath removed intact; hemostasis achieved with Exoseal to the Right Femoral artery. 15:07:44 Procedure ended.(Physican Out) 15:08:02 Fluoroscopy time 08.90 minutes. 15:08:10 Flurop Dose total: 2021 15:08:10 Fluoroscopy dose: 2 mGy 15:08:13 Contrast amount:Isovue 300 134ml. 15:08:44 Sharps counted by scrub and verified by R.N. 15:08:47 Post-op/insertion site Right Femoral artery dressed using a 4 x 4 and Tegaderm. 15:08:54 Post-procedure physical assessment completed. ASA score P 2 - A patient with mild systemic disease as per Adarsh Holden MD. 15:09:00 Post procedure rhythm: sinus rhythm 15:09:02 Estimated blood loss: 10 ml 15:09:03 Post procedure instruction explained to patient.Patient verbalizes understanding. 15:09:06 Patient needs reinforcement of post procedure teaching. 15:09:28 Procedure type changed to Cath procedure, Diagnostic procedure, FFR/IVUS, FFR Initial, Sedation Charges, Moderate Sedation up to 30 minutes, PCI procedure, Coronary Stent, Coronary Stent Initial 15:09:49 Procedure and supply charges have been captured, reviewed, submitted and are correct. 15:09:53 Procedure Complication : No complications 15:12:19 Vital chart was stopped 15:12:20 See physician's report for complete and final results. 15:12:21 Report given to Pre/Post Procedure Room. 15:12:24 Patient transfered to Pre/Post Procedure Room with Bed. 15:12:28 Procedure ended. 15:12:28 Full Disclosure recording stopped 15:12:31 End room use (Document Last) Intervention Summary Intervention Notes Time ActionType Lesion and Equipment Action# Pressure Duration Attributes Used 14:58:08 Place stent Mid LAD LYNDA OTW 2.75 1 17 00:10 x 22 stent ([id number]) 15:02:42 Place stent Mid LAD LYNDA OTW 3.0 2 10 00:10 x 26 stent ([id number]) Device Usage Item Name Manufacture Quantity Catalog Hospital Part [facility] Lot# / Number Charge Number Stock Stock Serial# Code ACIST Syringe Acist 1 35382 001459 843257 129531 20 (73732) Medical Systems Inc ACIST Hand Acist 1 32691 268232 237602 832602 5 Control Medical (94987) Systems Inc ACIST Acist 1 73363 733265 170248 503979 5 Manifold Medical (42476) Systems Inc Medline Cath Medline 1 [id number] 807261 29975 316965 5 Pack ([id number]) Bag Decanter Microtek 1 659065 74595 514473 5 () Medical Inc. DIAGNOSTIC St Tian 1 160375 316977 902758 926277 30 WIRE .035 260cm J wire (265496) SHEATH 6FR Terumo 1 CHF975 107519 381166 561636 40 [place] (VVY734) INFLATOR Merit 1 HK0355 199168 251023 681861 15 Merit Medical BasixCompak (NX2118) TUBING High Merit 1 [id number] 490199 42644 541371 10 Pressure Medical Extension Tubing (Holden) (EG9811P) GUIDE 6FR Cardinal 1 [id number] 867471 331157 777474 10 XBLAD 3.5 Health catheter (08314220) BMW 300cm Christensen 1 4432988 536424 430211 764668 5 Straight Vascular [place] 2 wire (1819035) Stryker Stryker 1 56228Q 522909 693583316 234115 5 Verrata Plus pressure wire (60502A) LYNDA OTW 2.75 Medtronic 1 [id number] 124478 5532136 305201 5 [id number] x 22 stent ([id number]) LYNAD OTW 3.0 Medtronic 1 [id number] 552407 9237103 852802 5 [id number] x 26 stent ([id number]) EXOSEAL 6Fr Cardinal 1 EX600 197159 360099 742421 10 (EX600) Health Signature Audit [place] Stage Time Signature Unsigned Intra-Procedure 04/02/2019 Anna Rivera 3:16:18 PM RT(R) Signatures Monitor : Anna Rivera Signature : RT Date : Time : [place] [place] [address]
[~2019-04-02 11:09] MED LIST changes: +BAYER CHEWABLE81 MG PO; +COLESTID1 GM PO; +LEVEMIR FL100 UNIT/1 SC; +MELATONIN10 M1 PO; +NEURONTIN 300300 MG PO; +NOVOLOG INJ FLE SC; +OMEPRAZOLE20 M1 PO; +PLAVIX75 MG PO
[2019-04-02 11:50] VITALS: BP 141/65; Ht 185.4 cm; Wt 115.5 kg
[2019-04-02 12:18] LABS: BASOPHILS 0.3 % (0-2); CALC OSMOLALITY 273 mosm/kg (275-300); CALCIUM 8.9 mg/dL (8.5-10.1); CHLORIDE - SERUM 101 mmol/L (98-107); CREATININE - SERUM 0.8 mg/dL (0.6-1.3); EOSINOPHILS 6.4 % (0-7); GLUCOSE 131 mg/dL (74-106); HEMATOCRIT 35.8 % (42.0-54.0); HEMOGLOBIN 11.5 g/dL (13.5-17.5); IMMATURE GRANULOCYTES 0.3 % (0-5); LYMPHOCYTES 21.4 % (15-50); MCH 23.4 pg (26.0-34.0); MCHC 32.1 g/dL (31.0-37.0); MCV 72.8 fL (80.0-100.0); MEAN PLATELET VOLUME 8.2 fL (7.4-10.4); MONOCYTES 10.6 % (2-11); PLATELET COUNT 245 10x3/uL (130-400); POTASSIUM - SERUM 3.9 mmol/L (3.5-5.1); RBC 4.92 10x6/uL (4.20-6.10); RDW 16.3 % (11.5-14.5); SODIUM 135 mmol/L (136-145); UREA NITROGEN 17 mg/dL (7-18); WBC 8.9 10x3/uL (4.8-10.8); eGFR NON AFRICAN AMERICAN > 90 mL/min (90-120)
--- NOTE | 2019-04-02 15:31 | NUR ---
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 HR 67 BP 129/67 CHEST PAIN IS DENIED
--- NOTE | 2019-04-02 15:45 | NUR ---
6 FR EXOSEAL R/GROIN REMAINS CDI NO BLEEDING NOTED. VSS WITH CHEST PAIN DENIED INSTRUCTED PATIENT TO KEEP HEAD FLAT ON PILLOW WITH RLE STRAIGHT
--- NOTE | 2019-04-02 16:13 | NUR ---
6 FR EXOSEAL TO R/GROIN IS CDI NO BLEEDING OR HEMATOMA NOTED. HR 62 BP 126/62 NO DISTRESSS NOTED
--- NOTE | 2019-04-02 17:05 | NUR ---
PATIENT CONTINUES TO REST WITH NO DISTRESS. HR 66 BP 149/69
--- NOTE | 2019-04-02 17:38 | NUR ---
PATIENT VOIDS 300 CC CLEAR YELLOW URINE TO COLLECTION R/GROIN REMAINS CDI
--- NOTE | 2019-04-02 17:59 | NUR ---
REPOSITIONED TO [facility] UP 30 FOR COMFORT. 6 FR EXOSEAL R/GROIN REMAINS CDI NO BLEEDING NOTED. CHEST PAIN IS DENIED
--- NOTE | 2019-04-02 18:30 | NUR ---
VERBAL AND WRITTEN DISCHARGE GONE OVER WITH PATIENT AND FAMILY. 6 FR EXOSEAL TO R/GROIN IS CDI NO BLEEDING. PATIENT DENIED CHEST PAIN
--- NOTE | 2019-04-02 18:43 | NUR ---
PIV REMOVED DRESSING APPLIED. R/GROIN REMAINS CDI WITH CHEST PAIN DENIED. PATIENT UP TO GET DRESSED FOR DISCHARGE HOME NO DISTRESS
--- NOTE | 2019-04-02 18:57 | NUR ---
PATIENT LEFT VIA WC TO PARKING FOR TRANSPORT HOME CHEST PAIN IS DENIED AND R/GROIN REMAINS CDI
== END | disposition home or self-care (01) ==
LOC: D.CATH 11:09
PROVIDERS: ATTEND Internal Medicine Cardiovascular Disease
DX: I25.119 Atherosclerotic heart disease of native coronary artery with unspecified angina pectoris (principal); Z01.812 Encounter for preprocedural laboratory examination
CPT/HCPCS: 93571; C9600

== ENCOUNTER 2019-06-14 09:23 | Emergency (ER) | payer MEDICARE, OTHER ==
[~2019-06-14] VITALS: Ht 185.4 cm; Wt 119.1 kg
[2019-06-14 09:24] VITALS: Ht 185.4 cm; Wt 119.1 kg
[2019-06-14] MEDS ORDERED: HUMIRA SC (09:49)
[2019-06-14 09:50] LABS: BASOPHILS 0.3 % (0-2); EOSINOPHILS 2.9 % (0-7); HEMOGLOBIN 11.2 g/dL (13.5-17.5); IMMATURE GRANULOCYTES 0.3 % (0-5); LYMPHOCYTES 18.2 % (15-50); MCH 23.1 pg (26.0-34.0); MCV 72.3 fL (80.0-100.0); MEAN PLATELET VOLUME 8.3 fL (7.4-10.4); MONOCYTES 6.9 % (2-11); NEUTROPHILS 71.4 % (40-80); PLATELET COUNT 197 10x3/uL (130-400); RBC 4.84 10x6/uL (4.20-6.10); RDW 17.6 % (11.5-14.5); WBC 9.5 10x3/uL (4.8-10.8)
[2019-06-14] MEDS ORDERED: FLORAJEN3 CAPS460 MG PO (09:50)
[2019-06-14] MEDS ORDERED: NUTRISOURCE FI1 EACH PO (09:50)
[2019-06-14] MEDS ORDERED: CENTRUM COMPLE1 EACH PO (09:51)
[2019-06-14] MEDS ORDERED: SINGULAIR10 MG PO (09:51)
[2019-06-14] MEDS ORDERED: METOPROLOL TART50 MG PO (09:52)
[2019-06-14] MEDS ORDERED: LIPITOR10 MG PO (09:54)
[2019-06-14 10:02] LABS: APTT 28.2 SECONDS (22.8-39.4); INR 1.17 (0.85-1.17); PROTIME 14.3 SECONDS (11.6-15.0)
[2019-06-14 10:08] LABS: ALBUMIN 2.8 g/dL (3.4-5.0); ALKALINE PHOSPHATASE 73 U/L (46-116); ALT (SGPT) 17 U/L (10-68); BILIRUBIN - TOTAL 0.39 mg/dL (0.2-1.3); CALC OSMOLALITY 273 mosm/kg (275-300); CALCIUM 8.5 mg/dL (8.5-10.1); CHLORIDE - SERUM 102 mmol/L (98-107); CREATININE - SERUM 0.8 mg/dL (0.6-1.3); GLUCOSE 141 mg/dL (74-106); POTASSIUM - SERUM 4.2 mmol/L (3.5-5.1); PROTEIN - SERUM 7.7 g/dL (6.4-8.2); SODIUM 135 mmol/L (136-145); UREA NITROGEN 17 mg/dL (7-18); eGFR NON AFRICAN AMERICAN > 90 mL/min (90-120)
[2019-06-14 10:19] LABS: CKMB 1.2 U/L (0.0-3.6); CREATINE KINASE 144 UL (21-232); MAGNESIUM - SERUM 1.6 mg/dL (1.8-2.4); TROPONIN-I < 0.017 ng/mL (0.000-0.060)
[2019-06-14 14:41] VITALS: BP 112/75
== END 2019-06-14 14:26 | disposition home or self-care (01) ==
LOC: D.ER 09:23
PROVIDERS: Family Medicine
DX: J98.4 Other disorders of lung (principal); M06.9 Rheumatoid arthritis, unspecified; R06.00 Dyspnea, unspecified; I10 Essential (primary) hypertension; E11.40 Type 2 diabetes mellitus with diabetic neuropathy, unspecified; I25.10 Atherosclerotic heart disease of native coronary artery without angina pectoris; E78.5 Hyperlipidemia, unspecified; J44.9 Chronic obstructive pulmonary disease, unspecified; K21.9 Gastro-esophageal reflux disease without esophagitis

== ENCOUNTER → 2019-06-18 19:09 | Outpatient (CLI) | payer MEDICARE, OTHER ==
[2019-06-14 09:24] VITALS: BMI 34.6
[~2019-06-18 19:09] MED LIST changes: +AMIODARONE HCL200 MG PO; +CENTRUM COMPLE1 EACH PO; +COLACE100 MG PO; +ENTRESTO 24 MG1 EACH PO; +FLORAJEN3 CAPS460 MG PO; +HUMIRA SC; +K-DUR20 MEQ PO; +LANOXIN125 MCG PO; +LEXAPRO10 MG PO; +LIPITOR10 MG PO; +METOPROLOL TART50 MG PO; +NUTRISOURCE FI1 EACH PO; +XARELTO20 MG PO
[2019-06-18 19:57] LABS: BASOPHILS 0.3 % (0-2); EOSINOPHILS 2.1 % (0-7); HEMOGLOBIN 11.3 g/dL (13.5-17.5); IMMATURE GRANULOCYTES 0.4 % (0-5); LYMPHOCYTES 16.7 % (15-50); MCH 23.3 pg (26.0-34.0); MCHC 32.3 g/dL (31.0-37.0); MCV 72.3 fL (80.0-100.0); MEAN PLATELET VOLUME 8.5 fL (7.4-10.4); MONOCYTES 7.4 % (2-11); NEUTROPHILS 73.1 % (40-80); PLATELET COUNT 248 10x3/uL (130-400); RBC 4.84 10x6/uL (4.20-6.10); RDW 18.3 % (11.5-14.5); WBC 10.5 10x3/uL (4.8-10.8)
[2019-06-18 20:20] LABS: ALBUMIN 3.2 g/dL (3.4-5.0); ALKALINE PHOSPHATASE 84 U/L (46-116); ALT (SGPT) 17 U/L (10-68); BILIRUBIN - TOTAL 0.55 mg/dL (0.2-1.3); CALC OSMOLALITY 276 mosm/kg (275-300); CALCIUM 8.5 mg/dL (8.5-10.1); CARBON DIOXIDE 25.2 mmol/L (21.0-32.0); CHLORIDE - SERUM 104 mmol/L (98-107); CREATININE - SERUM 0.9 mg/dL (0.6-1.3); POTASSIUM - SERUM 4.2 mmol/L (3.5-5.1); PROTEIN - SERUM 7.6 g/dL (6.4-8.2); SODIUM 138 mmol/L (136-145); UREA NITROGEN 19 mg/dL (7-18); eGFR NON AFRICAN AMERICAN 89 mL/min (90-120)
[2019-06-18 20:27] LABS: GLUCOSE 88 mg/dL (74-106)
== END | disposition home or self-care (01) ==
LOC: D.LABREF 19:09
PROVIDERS: ATTEND Internal Medicine Pulmonary Disease
DX: R91.8 Other nonspecific abnormal finding of lung field (principal)

== ENCOUNTER → 2019-07-04 09:07 | Outpatient (CLI) | payer MEDICARE, OTHER ==
[2019-06-14 09:24] VITALS: BMI 34.6
[~2019-07-04 09:07] MED LIST changes: -AMIODARONE HCL200 MG PO; -COLACE100 MG PO; -ENTRESTO 24 MG1 EACH PO; -K-DUR20 MEQ PO; -LANOXIN125 MCG PO; -LEXAPRO10 MG PO; -XARELTO20 MG PO
== END | disposition home or self-care (01) ==
LOC: D.RT 09:00
PROVIDERS: ATTEND Internal Medicine Pulmonary Disease
DX: J45.909 Unspecified asthma, uncomplicated (principal)

== ENCOUNTER 2019-07-11 13:24 | Inpatient (IN) | payer MEDICARE, OTHER ==
[~2019-07-11] VITALS: Ht 185.4 cm; Wt 118.2 kg
--- NOTE | ~2019-07-11 | HEMODYNAMI ---
PATIENT:ONUR SHERMAN MEDICAL RECORD: [id number] : 48 LOCATION:[facility] D.[id number] ADMISSION DATE: 07/11/19 Generatedon:07/16/201914:04 Patient name: ONUR SHERMAN Patient #: [id number] SSN: : 1950 Date of study: 07/16/2019 Page: Of Hemodynamic Procedure Report Patient Data Patient Demographics Procedure consent was obtained First Name: ONUR Gender: Male Last Name: LANE : 1950 [facility] Initial: KEE Age: 69 year(s) Patient #: [id number] Race: Additional ID: [id number] Contact details Address: [address] [place] [address] State: [place] City: [place] Zip code: [address] Past Medical History Allergies Allergen Reaction Date Comments Reported Penicillins 04/02/2019 Admission Admission Data Admission Date: 07/11/2019 Admission Time: 15:01 Arrival Date: 07/11/2019 Arrival Time: 15:01 Admit Source: Other Insurance Payor: Medicare Room #: D.[id number] Height (in.): 72.83 BSA: 2.4 (m2) Height (cm.): 185 BMI: 34.48 (kg/m2) Weight (lbs.): 260.15 Weight (kg.): 118 Lab Results Lab Result Date: 07/16/2019 Lab Result Time: 0:00 Biochemistry Name Units Result Min Max BUN mg/dl 18 --(---*)-- 7 18 Creatinine mg/dl 1 --(--*-)-- 0.6 1.3 CBC Name Units Result Min Max Hemoglobin g/dl 10.3 *-(----)-- 13.5 17.5 Procedure Procedure Types Cath Procedure Diagnostic Procedure Cardioversion External THUY Procedure Description Procedure Date Procedure Date: 07/16/2019 Procedure Start Time: 13:34 Procedure End Time: 13:44 Procedure Staff Name Function Manny Herrera MD Performing Physician Kenia Mckeon RT Monitor Jesenia Man RN Nurse Missy Guerrero Industrial Engineering Analyst Jakub Koo Industrial Engineering Analyst Ramu May COMPUTER ANALYST Additional personnel Indication CHF Procedure Data Cath Procedure Fluoroscopy Diagnostic fluoroscopy Total fluoroscopy Time: 0 time: 0 min min Diagnostic fluoroscopy Total fluoroscopy dose: 0 dose: 0 mGy mGy Contrast Material Contrast Material Type Amount (ml) Isovue 300 0 Estimated blood loss: 0 ml Procedure Complications No complications Procedure Medications Medication Administration Route Dosage 0.9% NaCl I.V. 100 ml/hr Oxygen etCO2 Nasal cannula 2 l/min Refer to Anesthesia Notes for Sedation Medications Hurricaine Durham P.O. 2 Sprays Hemodynamics Rest BSA: 2.4 (m2) HGB: 10.3 (g/dl) O2 Consumption: Estimated: 315.87 (ml/min) O2 Consumption indexed: Estimated:131.61 (ml/min/m) Heart Rate: 112 (bpm) Snapshots Pre Cath Intra NCS Post Cath Vital Signs Time Heart Resp SPO2 etCO2 NIBP Rhythm Pain Sedation Rate (ipm) (%) (mmHg) (mmHg) Status Level (bpm) 13:27:03 111 30 96 33 No Cuff A-Flutter 0 (11) 10(A) , No pain 13:34:38 111 24 97 27.7 111/81(91) A-Flutter 0 (11) 10(A) , No pain 13:38:52 108 28 98 20 81/65(70) A-Flutter 0 (11) 5(A) , No pain 13:43:44 62 34 98 26.9 106/59(94) NSR 0 (11) 5(A) , No pain 13:48:43 59 23 95 19.4 86/51(61) NSR 0 (11) 5(A) , No pain 13:53:45 61 27 98 31.4 81/58(73) NSR 0 (11) 5(A) , No pain 13:58:27 63 18 97 35.3 86/57(70) NSR 0 (11) 10(A) , No pain Medications Time Medication Route Dose Verified Delivered Reason Notes Effectiv eness by by 13:21:59 0.9% NaCl I.V. 100 Manny Ba used for ml/hr St Kyle Man procedure RN 13:22:22 Oxygen etCO2 2 Manny Jesenia used for Nasal l/min St Kyle Man procedure cannula MD FELIX 13:22:27 Refer to Manny Bryant Anesthesia SharonKyle Herrera Notes for MD DOUGLAS Sedation Medications 13:35:08 Hurricaine P[address]O. 2 Manny Bryant used for Durham Sprays St Kyle Nowak MD, MD Procedure Log Time Note 13::57 Diagnostic Cath Status : Elective 13:07:27 Indication : CHF 13:07:42 Informed consent obtained and on chart 13:07:48 Admit Source: Other 13:07:54 Arrival Date: 07/11/2019 3:01:00 PM 13:08:01 Insurance Payor : Medicare 13:11:52 Lab Result : Hemoglobin 10.3 g/dl 13::52 Lab Result : Creatinine 1 mg/dl 13:11:52 Lab Result : BUN 18 mg/dl 13:12:00 Jesenia Man RN sent for patient. Start room use. 13:12:01 Time tracking: Regular hours (M-F 7:00 - 5:00) 13:12:05 Plan of Care:Hemodynamics will remain stable., Cardiac rhythm will remain stable., Comfort level will be maintained., Respiratory function will remain adequate., Patient/ family verbilizes understanding of procedure., Procedure tolerated without complication., Recovers from procedure without complications.. 13:21:59 0.9% NaCl 100 ml/hr I.V. was administered by Jesenia Man RN; used for procedure; 13:22:22 Oxygen 2 l/min etCO2 Nasal cannula was administered by Jesenia Man RN; used for procedure; 13:22:27 Refer to Anesthesia Notes for Sedation Medications was administered by Manny Herrera MD; ; 13:25:19 Patient received from Med II to CCL 1 Alert and oriented. Tansferred to table in Supine position. 13:25:27 Warm blankets applied, and akiko hugger turned on for patient comfort. 13:25:28 Correct patient and procedure confirmed by team. 13:25:29 ECG and BP/O2 sat monitors applied to patient. 13:26:13 Vital chart was started 13:28:35 Baseline sample Acquired. 13:28:50 Rhythm: atrial flutter 13:28:57 Full Disclosure recording started 13:29:02 H&P Date Dictated: 07/16/2019 New H&P dictated by physician.. 13:29:03 Pre-procedure instructions explained to patient. 13:29:04 Pre-op teaching completed and patient verbalized understanding. 13:29:05 Family in patients room. 13:29:13 Patient NPO since Midnight. 13:29:15 Is the patient allergic to Iodine/contrast media? No. 13:29:16 Was the patient premedicated? No 13:29:20 Is patient on blood thinner?No 13:29:57 Patient diabetic? Yes. 13:30:02 If diabetic: On Metformin? No 13:30:04 Previous problem with sedation/anesthesia? No ? 13:30:06 Snore? Yes 13:30:14 Sleep apnea? Yes 13:30:15 Deviated septum? No 13:30:16 Opens mouth fully? Yes 13:30:18 Sticks out tongue? Yes 13:30:35 Airway obstruction? Yes asthma 13:30:40 Dentures? Yes in tight 13:30:59 Pre procedure: right dorsailis pedis pulse 2+ Normal; easily identifiable; not easily obliterated 13:31:02 Pre procedure: left dorsailis pedis pulse 1+ Palpable, but thready & weak; easily obliterated 13:31:22 Patient pain scale 0/10 ?. 13:31:56 IV patent on arrival in left forearm with 0.9% NaCl at KVO. 13:32:07 Lab results completed and on chart. 13:32:13 Alarms reviewed by R. N. 13:32:14 Sharps counted by scrub and verified by R.N. 13:32:48 Ramu May CRNA present and monitoring patient for TIVA. 13:32:51 Misys Guerrero Spice Mixer present for THUY. 13:33:04 Quick combo pads placed on patients chest and back. 13:33:35 Patient Height : 72.83 inches 13:33:41 Patient Weight : 260.15 lbs 13:34:17 Physician arrived 13:34:18 --------ALL STOP TIME OUT------ 13:34:18 Final Timeout: patient, procedure, and site verified with staff and physician. All members of the team are in agreement. 13:34:34 Fire Safety Assessment: C--Open oxygen or nitrous oxide is being used., E--There are other possible contributors. 13:34:37 Physical assessment completed. ASA score P 2 - A patient with mild systemic disease as per Manny Herrera MD. 13:34:42 Sedation plan: TIVA Medication:Propofol 13:34:58 Procedure started. 13:35:08 Hurricaine [place] 2 Sprays P.O. was administered by Manny Herrera MD; used for procedure; 13:35:09 THUY started. 13:41:23 THUY completed. 13:42:37 Defibrillator synced and charged to 200 Joules. 13:42:39 Shock delivered. 13:42:48 Patient cardioverted to sinus bradycardia. 13:42:53 Procedure ended.(Physican Out) 13:43:31 Fluoroscopy time 00.00 minutes. 13:43:33 Fluoroscopy dose: 0 mGy 13:43:33 Flurop Dose total: 0 13:43:36 Dose Area Product 0 mGy/cm. 13:43:38 Contrast amount:Isovue 300 0ml. 13:43:40 Sharps counted by scrub and verified by R.N. 13:43:41 Insertion/operative site no bleeding no hematoma. 13:43:46 Post procedure rhythm: sinus rhythm 13:43:55 Estimated blood loss: 0 ml 13:43:57 Post procedure instruction explained to patient.Patient verbalizes understanding. 13:43:58 Patient needs reinforcement of post procedure teaching. 13:44:10 Procedure and supply charges have been captured, reviewed, submitted and are correct. 13:44:14 Procedure Complication : No complications 13:44:16 Vital chart was stopped 13:44:18 See physician's report for complete and final results. 13:44:22 Report given to [facility]. 13:44:27 Patient transfered to [facility] with Stretcher. 13:44:29 Procedure ended. 13:44:29 Full Disclosure recording stopped 14:02:09 End room use (Document Last) Signature Audit [place] Stage Time Signature Unsigned Intra-Procedure 07/16/2019 Kenia Mckeon 2:04:30 PM RT(R) Signatures Performing Physician : Signature : Manny Herrera MD Date : Time : Monitor : Kenia Mike RT Signature : Date : Time : Nurse : Jesenia Man RN Signature : Date : Time : [address] [place] [address]
[2019-07-11] MEDS ORDERED: NEURONTIN 300300 MG PO ×2 (13:32→13:33)
[2019-07-11] MEDS ORDERED: PLAVIX75 MG PO (13:34)
[2019-07-11 14:00] VITALS: BP 111/82
[2019-07-11 14:38] LABS: BASOPHILS 0.3 % (0-2); EOSINOPHILS 2.1 % (0-7); HEMATOCRIT 37.1 % (42.0-54.0); HEMOGLOBIN 11.6 g/dL (13.5-17.5); IMMATURE GRANULOCYTES 0.3 % (0-5); LYMPHOCYTES 13.3 % (15-50); MCHC 31.3 g/dL (31.0-37.0); MCV 73.6 fL (80.0-100.0); MEAN PLATELET VOLUME 8.7 fL (7.4-10.4); MONOCYTES 8.3 % (2-11); NEUTROPHILS 75.7 % (40-80); PLATELET COUNT 214 10x3/uL (130-400); RBC 5.04 10x6/uL (4.20-6.10); RDW 18.8 % (11.5-14.5); WBC 10.4 10x3/uL (4.8-10.8)
[2019-07-11 14:42] LABS: ALKALINE PHOSPHATASE 95 U/L (46-116); ALT (SGPT) 28 U/L (10-68); BILIRUBIN - TOTAL 0.62 mg/dL (0.2-1.3); CALC OSMOLALITY 283 mosm/kg (275-300); CALCIUM 8.4 mg/dL (8.5-10.1); CARBON DIOXIDE 27.9 mmol/L (21.0-32.0); CHLORIDE - SERUM 105 mmol/L (98-107); CREATININE - SERUM 1.1 mg/dL (0.6-1.3); GLUCOSE 112 mg/dL (74-106); POTASSIUM - SERUM 4.5 mmol/L (3.5-5.1); PROTEIN - SERUM 7.6 g/dL (6.4-8.2); SODIUM 141 mmol/L (136-145); UREA NITROGEN 17 mg/dL (7-18); eGFR NON AFRICAN AMERICAN 70 mL/min (90-120)
[2019-07-11 14:54] LABS: CKMB 1.7 U/L (0.0-3.6); CREATINE KINASE 124 UL (21-232); PRO BNP 8694 pg/mL (0-125); TROPONIN-I < 0.017 ng/mL (0.000-0.060)
[2019-07-11 18:48] VITALS: BP 118/78; BMI 34.3
[2019-07-11 20:00] VITALS: BP 130/76
[2019-07-12] VITALS: BP 125/86
[2019-07-12 04:30] VITALS: BP 120/74
[2019-07-12 05:58] LABS: BASOPHILS 0.3 % (0-2); EOSINOPHILS 2.9 % (0-7); HEMATOCRIT 34.9 % (42.0-54.0); IMMATURE GRANULOCYTES 0.3 % (0-5); LYMPHOCYTES 22.9 % (15-50); MCH 22.9 pg (26.0-34.0); MCHC 31.5 g/dL (31.0-37.0); MCV 72.6 fL (80.0-100.0); MEAN PLATELET VOLUME 8.6 fL (7.4-10.4); MONOCYTES 9.3 % (2-11); NEUTROPHILS 64.3 % (40-80); PLATELET COUNT 220 10x3/uL (130-400); RBC 4.81 10x6/uL (4.20-6.10); RDW 18.7 % (11.5-14.5); WBC 9.2 10x3/uL (4.8-10.8)
[2019-07-12 06:14] LABS: CALC OSMOLALITY 281 mosm/kg (275-300); CALCIUM 8.3 mg/dL (8.5-10.1); CARBON DIOXIDE 29.9 mmol/L (21.0-32.0); CHLORIDE - SERUM 104 mmol/L (98-107); GLUCOSE 86 mg/dL (74-106); SODIUM 141 mmol/L (136-145); UREA NITROGEN 17 mg/dL (7-18); eGFR NON AFRICAN AMERICAN 78 mL/min (90-120)
[2019-07-12 06:22] LABS: POTASSIUM - SERUM 3.3 mmol/L (3.5-5.1)
--- NOTE | 2019-07-12 07:10 | NUR ---
REPORT RECEIVED FROM CONDENSER WINDER AND PATIENT CARE ASSUMED. PATIENT IS SITTING UP IN BED WATCHING TV. PATIENT IS ALERT AND ORIENTED X 4. PATIENT IS STABLE AND VSS. PATIENT DENIES ANY NEEDS OR PAIN . WILL CONTINUE TO MONITOR. SR UP X 2 BED IN LOW OSITION AND CALL LIGHT IN REACH.
[2019-07-12 09:04] VITALS: BP 112/70
--- NOTE | 2019-07-12 11:22 | NUR ---
PATIENT IS STABLE, VSS . PATIENT DENIES ANY NEEDS OR PAIN. WILL CONTINUE WITH PLAN OF CARE. SR UP X 2 BED IN LOW POSITION AND CALL LIGHT IN REACH.
[2019-07-12 12:20] VITALS: BP 108/74
[2019-07-12 13:50] VITALS: Ht 185.4 cm; Wt 118.2 kg
--- NOTE | 2019-07-12 16:16 | NUR ---
PATIENT LAYING IN BED ON RT SIDE WITH EYES CLOSED AND BREATHING EVENLY. WILL CONTINUE TO MONITOR. SR UP X 2 BED IN LOW POSITION AND CALL LIGHT .
[2019-07-12 17:00] VITALS: BP 118/78
--- NOTE | 2019-07-12 19:15 | NUR ---
RECEIVED REPORT,WILL ASSUME CARE OF PT, PT SITTING ON SIDE OF BED TALKING ON PHONE, 02-2L, [id number], IV-R.HAND-SL, BED IS LOW, SRX1, CALL LIGHT IN REACH, WILL CONTINUE PLAN OF CARE
[2019-07-13] VITALS: BP 113/69
--- NOTE | 2019-07-13 05:59 | NUR ---
I have reviewed this patient and I concur with the Shift Assessment completed by the Licensed Practical Nurse today this shift.
--- NOTE | 2019-07-13 06:08 | NUR ---
[id number] ORANGEJUICE
[2019-07-13 06:10] LABS: BASOPHILS 0.2 % (0-2); EOSINOPHILS 2.4 % (0-7); HEMATOCRIT 36.3 % (42.0-54.0); HEMOGLOBIN 11.3 g/dL (13.5-17.5); IMMATURE GRANULOCYTES 0.2 % (0-5); LYMPHOCYTES 16.8 % (15-50); MCH 22.8 pg (26.0-34.0); MCHC 31.1 g/dL (31.0-37.0); MCV 73.2 fL (80.0-100.0); MEAN PLATELET VOLUME 8.4 fL (7.4-10.4); MONOCYTES 11.4 % (2-11); PLATELET COUNT 230 10x3/uL (130-400); RBC 4.96 10x6/uL (4.20-6.10); RDW 19.2 % (11.5-14.5); WBC 10.8 10x3/uL (4.8-10.8)
[2019-07-13 06:21] LABS: CALC OSMOLALITY 283 mosm/kg (275-300); CALCIUM 8.4 mg/dL (8.5-10.1); CARBON DIOXIDE 31.4 mmol/L (21.0-32.0); CHLORIDE - SERUM 105 mmol/L (98-107); CREATININE - SERUM 0.9 mg/dL (0.6-1.3); POTASSIUM - SERUM 3.7 mmol/L (3.5-5.1); SODIUM 143 mmol/L (136-145); UREA NITROGEN 16 mg/dL (7-18); eGFR NON AFRICAN AMERICAN 89 mL/min (90-120)
[2019-07-13 06:22] LABS: GLUCOSE 67 mg/dL (74-106)
--- NOTE | 2019-07-13 07:08 | NUR ---
PT AWAKE AND ORIENTED, LYING ON BACK WHEN I ENTERED THE ROOM. PT REQUESTED EMPTY HIS URINAL AND ALL OTHER CUPS IN HIS ROOM. PT HAD RUN OUT OF ROOM IN HIS URINLE AND INSTEAD OF ASKING US TO EMPTY IT FOR HIM, HE USED THE EMPTY Pint PleaseS CUPS AROUND HIS ROOM TO URINATE IN. NO COMPLAINTS, CONCERNS VOICED AT THIS TIME. ALL QUESTIONS ANSWERED TO THE BEST OF MY ABILITY. CL IN REACH, SRX2. PREFORMED PT EDUCATION ON USING A URINAL AND CALLING US TO EMPTY THEM PRIOR TO NEEDING TO USE CUPS.
[2019-07-13 07:55] VITALS: BP 110/71
[2019-07-13 12:25] VITALS: BP 97/63
--- NOTE | 2019-07-13 14:17 | NUR ---
IN HALLWAY YELLING FOR HELP. PATIENT IS TRYING TO TAKE A SHOWER AND NEEDS HELP SITTING DOWN. MYSELF, ALEX, AND ZEINA ALL WERE IN THE ROOM. ENCOURAGED PATIENT TO COME OUT OF THE SHOWER HE WAS PALE LOOKING AND ON ROOM AIR. STATES THAT HE IS "TAKING A SHOWER CAUSE I HAVEN'T HAD A DAMN BATH IN 5 DAYS". PLACED ON 2L PER NC IN THE SHOWER. IS HOLDING A PORTABLE BLOWING ON PATIENT AND FANNING HIM WITH A PIZZA TOP BOX.
--- NOTE | 2019-07-13 15:30 | NUR ---
THIS A.M PT STATED HE HAD NOT HAD A SHOWER/BED CHANGE SINCE ARRIVING HERE. PT STATED HE WOULD BE SHOWERING TODAY, AFTER LEARNING MORE OF HOW PT MOVED,I ADVISED AGAISNT THIS BUT PT INSISTED THAT HIS SIGNIFICANT OTHER WAS COMING BY AND HE WANTED HER TO ASSIST HIM IN THE SHOWER, STATING THAT SHE DOES THIS FOR HIM AT HOME. UPON S/O ARRIVING, I WALKED INTO PT STRUGGLING TO WALK TO THE TOILET WITH S/O'S AID. PT WAS HOPING AND I WAS EXTREMELY WORRIED ABOUT HIM FALLING, I ASKED MULTIPLE TIMES THAT HE SIT. PT ONLY SAT WHEN HE GOT ON THE TOILET. PT STILL INSISTED ON HAVING A SHOWER DESPITE MY ADVISING AGAISNT IT. GIRL CAME OUT SOME TIME LATER TAMERA HELP. MYSELF AND TWO OTHER NURSES WENT IN THE ROOM TO FIND THE PT STRUGGLING TO GET IN THE SHOWER. ALL ASSISTED PT INTO SHOWER ON SHOWER CHAIR AND ALL NURSES AGAIN STRONGLY ADVISED PT AGAISN HAVING A SHOWER. PT INSISTED HE WAS FINE BUT NEEDED US TO BLOW HIS FAN CONSTANTLY IN CLOSE WE COULD PUT THE BOX FAN TO HIS FACE. HELPED PT FINSIH SHOWERING, MYSELF AND CHARGE NURSE ASSISTED HIM BACK TO BED (LINNENS CHANGED). PT IS NOW RESTING COMFORTABLY BUT HAS VERBALLY AGREED TO NO MORE SHOWERS UNTIL HE IS STRONGER. CL IN REACH, SRX2. WALKER IN ROOM.
[2019-07-13 16:02] VITALS: BP 111/76
--- NOTE | 2019-07-13 19:30 | NUR ---
RECEIVED REPORT, WILL ASSUME CARE OF PT, IV-R.HAND-SL, [id number], DENIES ANY NEEDS, VISITING WITH FAMILY, BED IS LOW, SRX2, CALL LIGHT IN REACH, WILL CONTINUE PLAN OF CARE
[2019-07-13 20:00] VITALS: BP 95/46
[2019-07-14] VITALS: BP 102/70
--- NOTE | 2019-07-14 04:11 | NUR ---
I have reviewed this patient and I concur with the Shift Assessment completed by the Licensed Practical Nurse today this shift.
[2019-07-14 05:43] VITALS: BP 94/61
[2019-07-14 06:09] LABS: BASOPHILS 0.2 % (0-2); EOSINOPHILS 2.7 % (0-7); IMMATURE GRANULOCYTES 0.3 % (0-5); LYMPHOCYTES 14.5 % (15-50); MCH 22.8 pg (26.0-34.0); MCHC 31.4 g/dL (31.0-37.0); MCV 72.6 fL (80.0-100.0); MEAN PLATELET VOLUME 8.6 fL (7.4-10.4); MONOCYTES 11.8 % (2-11); NEUTROPHILS 70.5 % (40-80); PLATELET COUNT 190 10x3/uL (130-400); RBC 4.82 10x6/uL (4.20-6.10); WBC 9.2 10x3/uL (4.8-10.8)
[2019-07-14 06:29] LABS: CALC OSMOLALITY 278 mosm/kg (275-300); CALCIUM 8.3 mg/dL (8.5-10.1); CARBON DIOXIDE 29.4 mmol/L (21.0-32.0); CHLORIDE - SERUM 102 mmol/L (98-107); CREATININE - SERUM 0.9 mg/dL (0.6-1.3); GLUCOSE 99 mg/dL (74-106); POTASSIUM - SERUM 3.6 mmol/L (3.5-5.1); SODIUM 139 mmol/L (136-145); UREA NITROGEN 15 mg/dL (7-18); eGFR NON AFRICAN AMERICAN 89 mL/min (90-120)
--- NOTE | 2019-07-14 07:20 | NUR ---
PT AWAKE AND ORIENTED, ALL QUESTIONS ANSWERED TO THE BEST OF MY ABILITY. NO COMPLAINTS/COCNERNS STATED AT THIS TIME. NO FAMILY AT BEDSIDE. REINFORCED PT TEACHING TO NOT GET OUT OF BED WITHOUT ASSISTANCE. PT VERBALIZES UNDERSTANDING. EMPTIED URINAL (800 OUT). CL IN REACH, SRX2.
[2019-07-14 07:58] VITALS: BP 106/74
--- NOTE | 2019-07-14 10:34 | NUR ---
PT AWAKE AND ORIENTED, STARTED CORDERONE DRIP AND PUSHED DIGOXIN PER ORDER. PT HR STILL UP, COMING DOWN SLOWLY. NO COMPLAINTS OR CONCERNS, ALL QUESTIONS ANSWERED.
[2019-07-14 11:57] VITALS: BP 113/70
--- NOTE | 2019-07-14 12:13 | NUR ---
PT AWAKE AND ORIENTED. STARTED CORDOZONE drip. will run @ 1mg/hr for 6 HOURS. WILL CHANGE TO .5/HR AT 1815
[2019-07-14 14:55] VITALS: BP 111/68
--- NOTE | 2019-07-14 18:44 | NUR ---
PT AWAKE AND ORIENTED. SPOKE WITH NIECE AT LENGTH ABOUT HER WANTING TO HAVE PT WEAR A CONDOM CATHETER, WHEN I SPOKE TO THE PT HE REFUSED. PT STATES HE DOESN'T WANT ONE TO SAVE HIS DIGNITY. PT HAS NO COMPLAINTS OR CONCERNS, ALL QUESTIONS ANSWERED TO THE BEST OF MY ABILITY. CL IN REACH,M SRX2.
[2019-07-14 20:00] VITALS: BP 117/74
--- NOTE | 2019-07-14 23:25 | NUR ---
INITIAL ROUNDS COMPLETED AT 1914 HRS. PT UP IN BR AT THAT TIME. ASSISTED BACK TO BED. ASSESSMENT COMPLETED AT 2024 HRS. VSS. A-FLUTTER PER CM HR 115. PT ALERT AND ORIENTED TO PERSON, PLACE AND TIME. VAIL. O2 2LNC. PT VERY SOB WITH EXERTION. LUNGS DIMINISHED IN BASES BILAT. ABD SOFT WITH ACTIVE BS NOTED. GAIT UNSTADY. HAS PRONOUNCED LIMP. USES WALKER. IV TO R HAND WITH CORDARONE AT 1/2MG/MIN (16.7CC/HR). IV PATENT. PM FSBS 150. NO S/S NECESSARY. PT REFUSED PM LEVEMIR. PM MEDS GIVEN. PT CURRENTLY RESTING WITH EYES CLOSED. RESP EVEN AND REGULAR. SR UP X2, CALL LIGHT WITHIN REACH.
[2019-07-15] VITALS: BP 109/74; BP 118/84
--- NOTE | 2019-07-15 01:50 | NUR ---
PT SITTING ON SIDE OF BED. NO DISTRESS NOTED. CALL LIGHT WITHIN REACH AND FAMILY AT BEDSIDE.
[2019-07-15 04:00] VITALS: BP 115/71
--- NOTE | 2019-07-15 04:27 | NUR ---
PT RESTING WITH EYES CLOSED. RESP EVEN AND REGULAR. SR UP X2, CALL LIGHT WITHIN REACH.
[2019-07-15 04:50] LABS: BASOPHILS 0.1 % (0-2); EOSINOPHILS 2.7 % (0-7); HEMATOCRIT 33.5 % (42.0-54.0); HEMOGLOBIN 10.5 g/dL (13.5-17.5); IMMATURE GRANULOCYTES 0.2 % (0-5); MCH 22.6 pg (26.0-34.0); MCHC 31.3 g/dL (31.0-37.0); MCV 72.2 fL (80.0-100.0); MEAN PLATELET VOLUME 8.6 fL (7.4-10.4); PLATELET COUNT 194 10x3/uL (130-400); RBC 4.64 10x6/uL (4.20-6.10); RDW 19.1 % (11.5-14.5); WBC 9.4 10x3/uL (4.8-10.8)
[2019-07-15 05:31] LABS: CALC OSMOLALITY 279 mosm/kg (275-300); CARBON DIOXIDE 26.3 mmol/L (21.0-32.0); CHLORIDE - SERUM 103 mmol/L (98-107); CREATININE - SERUM 0.8 mg/dL (0.6-1.3); GLUCOSE 124 mg/dL (74-106); POTASSIUM - SERUM 3.9 mmol/L (3.5-5.1); SODIUM 139 mmol/L (136-145); UREA NITROGEN 16 mg/dL (7-18); eGFR NON AFRICAN AMERICAN > 90 mL/min (90-120)
--- NOTE | 2019-07-15 05:59 | NUR ---
AFLUTTER THROUGHOUT NIGHT. OTHER VSS. AM FSBS 124. NO COVERAGE NEEDED. PT RESTED WELL DURING SHIFT. NEEDS MET; WILL CONTINUE TO MONITOR.
--- NOTE | 2019-07-15 07:12 | NUR ---
PT AWAKE AND ORIENTED, LYING IN BED TALKING TO HIS NIECE. NO COMPLAINTS, CONCERNS OR QUESTIONS AT THIS TIME. STATES HE GOT A COUPLE HOURS OF GOOD SLEEP. CL IN REACH, SRX2.
[2019-07-15 08:39] VITALS: BP 114/77
--- NOTE | 2019-07-15 09:53 | NUR ---
INFORMED PT OF CARDIOVERSION ORDERS, ANSWERED ALL QUESTIONS TO THE BEST OF MY ABILITY. ASSISTED PT TO SIDE OF THE BED TO URINATE. PT IS FRUSTRATED THAT HE CAN'T EAT OR DRINK BUT VERBALIZES BUT STATES UNDERSTANDING OF NPO ORDER. CL IN REACH, SRX2.
[2019-07-15 11:43] VITALS: BP 121/82
--- NOTE | 2019-07-15 14:30 | CN ---
PATIENT NAME:ONUR SHERMAN MEDICAL RECORD: [id number] : 48 LOCATION:D. D.2129 ADMIT DATE: 07/11/19 ACCOUNT: [id number] CONSULTING PHYSICIAN: MUNDO HERZOG MD REFERRING PHYSICIAN: LEISA ISRAEL MD DATE OF CONSULTATION: 07/14/2019 HISTORY OF PRESENT ILLNESS: A 69-year-old gentleman with history of coronary artery disease as well as cardiomyopathy, EF of 20%, with most recent intervention to LAD and circumflex, admitted with volume overload. Somewhat of an insidious course over about a 10- to 14-day history. He does not realize any palpitations. He just reports his heart rate as being fast. PAST MEDICAL HISTORY: Includes; 1. History of hypertension. 2. Hyperlipidemia. 3. Coronary artery disease as described above. 4. Cardiomyopathy. 5. Dyslipidemia. 6. Hypothyroidism, on replacement. MEDICATIONS: Include Amaryl 2 mg p.o. q.a.m., insulin per scale, Synthroid 75 mcg daily, omeprazole 20 daily, Lasix 20 daily, Neurontin 300 daily, aspirin 81 daily, losartan 50 daily, and Plavix 75 daily. ALLERGIES: PENICILLIN. SOCIAL HISTORY: Nonsmoker and nondrinker. He has had some difficulty with ADLs as of late due to overall deconditioning. No exercise program or cardiac rehab postprocedure. REVIEW OF SYSTEMS: The patient reports easy bruising but reports no swollen glands. The patient reports no fever, no night sweats, no significant weight gain, no significant weight loss. No significant exercise tolerance. The patient reports no dry eyes, no irritation, no vision change. Patient reports no difficulty hearing and no ear pain. Patient reports no frequent nose bleeds or nose and sinus problems. Patient reports on arm pain on exertion. No shortness of breath while lying down. No history of heart murmur. Patient reports no cough, no wheezing or coughing up blood. Patient reports no abdominal pain, no vomiting. Normal appetite. No diarrhea and not vomiting blood. No nausea and no constipation. Patient reports no incontinence. No difficulty urinating. No hematuria. No increased frequency. Patient reports no muscle aches. No weakness, no arthralgias, no back pain. No swelling of the extremities. Patient reports no abnormal mole, no jaundice, no rashes. Reports no loss of consciousness. No weakness and no numbness. No seizures, dizziness, or headaches. The patient reports no depression, no sleep disturbance, feeling safe in a relationship and no alcohol abuse. Patient reports on fatigue. Reports no runny nose or sinus pressure. No itching, no hives, and no frequent sneezing. PHYSICAL EXAMINATION: GENERAL: Well developed, well nourished, mildly dyspneic at rest. VITAL SIGNS: Pulse is 120 and blood pressure 106/74. HEENT: Normocephalic and atraumatic. NECK: No JVD or bruit. CONSULT REPORT [id number] LANEONURGIANNA SWEET HEART: Regular. Tachycardic. II/ systolic ejection murmur. LUNGS: Fair air excursion. Decreased breath sounds at both bases. ABDOMEN: Soft and nontender. EXTREMITIES: Pulses 1+ with 1+ edema. NEUROLOGIC: Grossly intact. IMPRESSION: Jxjaw-qf-qpkkojh CHF. Suspect exacerbated by underlying flutter of 2:1 as well. Begin amiodarone dose. Begin NOAC and one dose of digoxin. Given marked symptomology, if he does not respond to antiarrhythmics fairly rapidly, plan for THUY cardioversion. TRANSINT:[id number] Voice Confirmation ID: [id number] DOCUMENT ID: [id number] MUNDO HERZOG MD at 1430 CC: [id number] DICTATION DATE: 07/14/19 1016 PHOTO RETOUCHER: 07/14/19 1229 ADM IN [facility] [address] [place] [address]
--- NOTE | 2019-07-15 15:36 | NUR ---
PT AWAKE AND ORIENTED, SITTING ON THE SIDE OF THE BED. ASSISTED TO THE BATHROOM MULTIPLE TIMES. NO COMPLAINTS, CONCERNS, OR QUESTIONS AT THIS TIME. ANGELO WILL DO CARDIOVERSION TOMORROW A.M. PT VERBALIZES UNDERSTANDING OF PROCEDURE AND PREOP MEASURES.
[2019-07-15 18:18] VITALS: BP 131/74
--- NOTE | 2019-07-15 19:50 | NUR ---
REPORT RECIEVED AND ROUNDING COMPLETE. PATIENT LAYIGN IN BED WITH LOTS OF GUEST IN ROOM. PATIENT HAS SHALLOW LABORED BREATHING BUT STATES THAT IS NORMAL FOR HIM RIGHT NOW, PATIENT IS CONCERNED WITH TRYING OUT THE BIPAP TONIGHT BECAUSE HE IS CLAUSTROPHOBIC. PATIENT AT THIS TIME IS RECIEVENG OS VIA NASAL CANNULA AT 2L. PATIENT STATES HE UNDERSTANDS HE IS NPO AFTER MIDNIGHT. PATIENT STATES HE HAS NO NEEDS AT THIS TIME. CALL LIGHT WITHIN REACH AND BED IN LOWEST POSITION.
[2019-07-15 20:00] VITALS: BP 113/90
[2019-07-16 04:00] VITALS: BP 87/61
[2019-07-16 05:14] LABS: BASOPHILS 0.2 % (0-2); EOSINOPHILS 3.8 % (0-7); HEMATOCRIT 32.7 % (42.0-54.0); HEMOGLOBIN 10.3 g/dL (13.5-17.5); IMMATURE GRANULOCYTES 0.5 % (0-5); LYMPHOCYTES 27.1 % (15-50); MCH 22.9 pg (26.0-34.0); MCHC 31.5 g/dL (31.0-37.0); MCV 72.7 fL (80.0-100.0); MEAN PLATELET VOLUME 8.6 fL (7.4-10.4); MONOCYTES 13.4 % (2-11); PLATELET COUNT 171 10x3/uL (130-400); RDW 18.8 % (11.5-14.5)
[2019-07-16 05:26] LABS: WBC 6.3 10x3/uL (4.8-10.8)
[2019-07-16 05:31] LABS: CALC OSMOLALITY 279 mosm/kg (275-300); CALCIUM 8.4 mg/dL (8.5-10.1); CARBON DIOXIDE 27.8 mmol/L (21.0-32.0); CHLORIDE - SERUM 104 mmol/L (98-107); GLUCOSE 100 mg/dL (74-106); POTASSIUM - SERUM 3.8 mmol/L (3.5-5.1); SODIUM 139 mmol/L (136-145); UREA NITROGEN 18 mg/dL (7-18); eGFR NON AFRICAN AMERICAN 78 mL/min (90-120)
--- NOTE | 2019-07-16 07:20 | NUR ---
PT RESTING IN BED, SHIFT ASSESSMENT PERFORMED. FAMILY AT BEDSIDE, DENIES ANY NEEDS AT THIS TIME. WILL CONT TO FOLLOW POC
[2019-07-16 09:20] VITALS: BP 95/53
--- NOTE | 2019-07-16 12:05 | NUR ---
PT RESTING IN BED, FAMILY AT BEDSIDE, DENIES ANY NEEDS AT THIS ITME, WILL CONT TO FOLLOW POC
--- NOTE | 2019-07-16 13:15 | NUR ---
PT LEFT FLOOR FOR CARDIOVERSION
--- NOTE | 2019-07-16 13:15 | NUR ---
PT LEFT FLOOR FOR HEART CATH
[2019-07-16 13:35] VITALS: BP 103/72
--- NOTE | 2019-07-16 14:00 | NUR ---
PT RETURNED FROM CARDIOVERSION
--- NOTE | 2019-07-16 14:12 | NUR ---
Nutrition Follow-up: Pt currently NPO for cardioversion. Continues to report good appetite/PO intake otherwise. Diet: NPO Wt: 261# Last BM: 07/15 Labs reviewed Meds reviewed When medically feasible, rec ADAT to low Na diabetic diet. RD following.
[2019-07-16 17:42] VITALS: BP 159/101
[2019-07-16 20:00] VITALS: BP 118/43
--- NOTE | 2019-07-16 20:10 | NUR ---
PT SITTING ON SIDE OF BED. NO S/S OF DISTESS. PT STATES FEELING BETTER THAN HE HAS IN AWHILE. DENIES PAIN. ELECTRODES CHANGED TO TELEMETRY DUE TO FALLING OFF. NO OTHER CONCERNS NOTED. WILL CONTINUE TO OBSERVE. CALL LIGHT IN REACH.
--- NOTE | 2019-07-16 22:23 | NUR ---
PT PLACED ON BIPAP PER REQUEST. TOLERATING WELL AT THIS TIME.
[2019-07-17] VITALS: BP 121/78
--- NOTE | 2019-07-17 00:16 | NUR ---
PT RESTING WITH EYES CLOSED AND CHEST RISING. CONTINUES BIPAP, TOLERATING WELL.
--- NOTE | 2019-07-17 01:49 | NUR ---
PT ASSISTED TO BATHROOM. USES WALKER. PT WITH MEDIUM FORM BM. BACK TO BED WITHOUT DIFFICULTY. REFUSES BIPAP AT THIS TIME. ON N/C 2LPM. NO OTHER NEEDS OR CONCERNS NOTED. CALL LIGHT IN REACH. WILL CONTINUE TO OBSERVE.
--- NOTE | 2019-07-17 03:46 | NUR ---
NIECE CALL TO CHECK ON PT AND STATES THAT SHE WILL TAKE HIM HOME WHEN READY FOR DISCHARGE.
[2019-07-17 04:00] VITALS: BP 126/86
--- NOTE | 2019-07-17 06:47 | NUR ---
PT SITTING UP ON SIDE OF BED. NO NEEDS MADE KNOWN. CALL LIGHT IN REACH.
--- NOTE | 2019-07-17 07:15 | NUR ---
PT RESTING IN BED, SHIFT ASSESSMENT PERFORMED. DENIES ANY NEEDS AT THIS TIME. WILL CONT TO FOLLOW POC
[2019-07-17 08:24] LABS: BASOPHILS 0.5 % (0-2); EOSINOPHILS 1.8 % (0-7); HEMATOCRIT 34.3 % (42.0-54.0); HEMOGLOBIN 10.9 g/dL (13.5-17.5); IMMATURE GRANULOCYTES 0.2 % (0-5); MCHC 31.8 g/dL (31.0-37.0); MCV 72.4 fL (80.0-100.0); MEAN PLATELET VOLUME 8.5 fL (7.4-10.4); MONOCYTES 10.8 % (2-11); NEUTROPHILS 67.7 % (40-80); PLATELET COUNT 181 10x3/uL (130-400); RBC 4.74 10x6/uL (4.20-6.10); RDW 18.8 % (11.5-14.5)
[2019-07-17 08:25] LABS: WBC 8.1 10x3/uL (4.8-10.8)
[2019-07-17 08:48] LABS: CALC OSMOLALITY 279 mosm/kg (275-300); CALCIUM 8.7 mg/dL (8.5-10.1); CARBON DIOXIDE 28.4 mmol/L (21.0-32.0); CHLORIDE - SERUM 103 mmol/L (98-107); CREATININE - SERUM 0.9 mg/dL (0.6-1.3); GLUCOSE 93 mg/dL (74-106); POTASSIUM - SERUM 4.2 mmol/L (3.5-5.1); SODIUM 139 mmol/L (136-145); UREA NITROGEN 18 mg/dL (7-18); eGFR NON AFRICAN AMERICAN 89 mL/min (90-120)
[2019-07-17 11:24] VITALS: BP 121/84
--- NOTE | 2019-07-17 16:00 | MORECARE ---
CASE MANAGEMENT DISCHARGE SUMMARY PATIENT: ONUR SHERMAN UNIT: [id number] ADM DATE: 07/11/19 AGE: 69 : 49 SEX: M ROOM/BED: D.2499 AUTHOR: CAMERON OROZCO PHYSICIAN: REFERRING PHYSICIAN: LEISA ISRAEL MD DATE OF SERVICE: 07/17/19 Discharge Plan Patient Name: ONUR SHERMAN [facility] [facility] 1950 Planned Disposition: Inpatient Rehab Anticipated Discharge Date: 07/18/19 Discharge Date: Expected LOS: 7 Initial Reviewer: [email or web address] Initial Review Date: 07/17/2019 Generated: 07/17/19 4:59 pm External Providers External Provider: [facility] Contact Date: 07/17/2019 Service Request Date: Service Type: Resolution: Reviewer: Comments: Patient Name: ONUR SHERMAN Page [phone] at 1600 All edits/amendments must be made on the electronic document DICTATION DATE: 07/17/19 1559 BOTTLE BLOWER: LOGAN 07/17/19 1559 RPT#: [id number] MD DATE: STATUS: ADM IN [place] [address] [place] [address] END OF REPORT
--- NOTE | 2019-07-17 16:08 | MORECARE ---
CASE MANAGEMENT DISCHARGE SUMMARY PATIENT: ONUR SHERMAN UNIT: [id number] ADM DATE: 07/11/19 AGE: 69 : 49 SEX: M ROOM/BED: D.2954 AUTHOR: CAMERON OROZCO PHYSICIAN: REFERRING PHYSICIAN: LEISA ISRAEL MD DATE OF SERVICE: 07/17/19 Discharge Plan Patient Name: ONUR SHERMAN Facility: [facility]:[place] : 1950 Planned Disposition: Inpatient Rehab Anticipated Discharge Date: 07/18/19 Discharge Date: Expected LOS: 7 Initial Reviewer: [email or web address] Initial Review Date: 07/17/2019 Generated: 07/17/19 5:07 pm Comments DCP- Discharge Planning Updated by [email or web address]: Rell Dacosta on 07/17/19 3:[address] Patient Name: ONUR SHERMAN Admission Status: ER Accout number: [id number] Admission Date: 07-11-2019 : 1950 Admission Diagnosis:SHORTNESS OF BREATH Attending: LEISA ISRAEL Current LOS: 6 Anticipated DC Date: 07-18-2019 Planned Disposition: Inpatient Rehab Primary Insurance: MEDICARE A & B PLANNED EXTERNAL PROVIDER: [facility] Discharge Planning Comments: CM RECEIVED TELEPHONE CALL FROM MAYRA SHERMAN, PT'S GUILLERMO, , WHO REPORTS THAT PT HAS GIRLFRIEND OF 20 YEARS THAT IS NO HELP AT HOME TO PATIENT AND THAT PT'S SON IS NOT MEDICALLY ABLE TO ASSIST PATIENT AT HOME. MAYRA REPORTS PT MAY DISCHARGE HOME SOON AND HE NEEDS TO GO TO REHAB SOMEWHERE AND MAYRA STATES SHE NEEDS TO HAVE A HOSPICE CONVERSATION WITH PT. CM EXPLAINED TO MAYRA THAT CM WILL SPEAK TO PT REGARDING DISCHARGE PLANNING AND COULD SHARE NO INFORMATION WITH HER SHE IS NOT LISTED ON PT'S CONTACT LIST. CM MET WITH PT IN ROOM TO DISCUSS DISCHARGE PLANNING AND NEEDS. PT REPORTS LIVING AT HOME INDEPENDENTLY WITH HIS GIRLFRIEND. PT HAS AN OLD WALKER FROM THE [employer] THAT HE BOUGHT WITH NO MEDICAL EQUIPMENT PROVIDER PREFERNECE. PT HAS AND NO OUTSIDE SERVICES ASSISTING IN THE HOME. MAYRA SHERMAN ARRIVED. PT GAVE PERMISSION TO DISCUSS HIS CARE AND TREATMENT WITH MAYRA AND IN HER PRESENCE. CM DISCUSSED AVAILABILITY OF HOME HEALTH, REHAB SERVICES AND MEDICAL EQUIPMENT. PT REPORTS HE NEEDS REHAB AND WOULD LIKE REFERRED TO [facility] ON [address] IMPORTANT MESSAGE FROM MEDICARE PROVIDED AND EXPLAINED. CM MET WITH DR. ISRAEL AT [facility], INFORMED OF ABOVE, REPORTS PT IS READY TO DISCHARGE IF AND WHEN ACCEPTED TO REHAB. CM CALLED [facility], , PROVIDED REFERRAL INFORMATION, [facility] TO EVALUATE SOON POSSIBLE. CM FAXED REFERRAL TO [facility] AT [phone]. CM WAITING ADMISSION DETERMINATION FROM [facility] ([facility]. Finish Production Manager: Rell Dacosta DCPIA - Discharge Planning Initial Assessment Updated by [email or web address]: Rell aDcosta on 07/17/19 4:00 pm * Is the patient Alert and Oriented? Yes * How many steps to enter\exit or inside your home? RAMP * PCP DR. ISRAEL * Pharmacy [facility] * Preadmission Environment Home with Family * ADLs Independent * Equipment Walker * Other Equipment NO MEDICAL EQUIPMENT PROVIDER PREFERENCE * List name and contact numbers for known caregivers / representatives who currently or will assist patient after discharge: JULISA MCDOWELL, SIGNIFICANT OTHER, * Verbal permission to speak to the caregivers and representatives has been obtained from the patient. Yes * Community resources currently utilized None * Please name any agencies selected above. NONE * Additional services required to return to the preadmission environment? Yes * Can the patient safely return to the preadmission environment? Yes * Has this patient been hospitalized within the prior 30 days at any hospital? No Coverage Notice Reviewer: [id number] - Rell Dacosta Notice Issued Date-Time: 07/17/2019 12:30 Notice Type: IM Discharge Notice Notice Delivered To: Patient Relationship to Patient: Professional Services Consultant Name: Delivery Method: HAND - Hand Delivered Adamaris Days: Prior Verbal Notification: Recipient Understood Notice: Yes Recipient Signature: Yes Med Rec Note Co-signed by Attending: Coverage Notice Comment: Last DP export: 07/17/19 3:00 p Patient Name: ONUR SHERMAN Page [id number] at 4727 All edits/amendments must be made on the electronic document DICTATION DATE: 07/17/191606 CROSSBAR FRAME WIRER: LOGAN 07/17/191606 RPT#: [id number] DC DATE: STATUS: ADM IN [facility] [address] [place] [address] END OF REPORT
[2019-07-17 20:00] VITALS: BP 106/56
--- NOTE | 2019-07-17 20:00 | NUR ---
PATIENT ALERT AND ORIENTED WHEN ENTERING THE ROOM WITH HOB ELEVATED. LUNGS DIMINSHED BILATERALLY IN UPPER AND LOWER LOBES. DRY HACKING COUGH. WEARING 2L NASAL CANNULA. DENIES PAIN OR DISCOMFORT AT THIS TIME. HAS CALL LIGHT IN HAND. DENIES FURTHER NEEDS. CPOC.
[2019-07-18] VITALS: BP 105/60
[2019-07-18 04:00] VITALS: BP 90/46
--- NOTE | 2019-07-18 06:10 | NUR ---
I have reviewed this patient and I concur with the Shift Assessment completed by the Licensed Practical Nurse today this shift.
[2019-07-18 07:24] LABS: BASOPHILS 0.4 % (0-2); CALC OSMOLALITY 279 mosm/kg (275-300); CALCIUM 8.7 mg/dL (8.5-10.1); CARBON DIOXIDE 30.4 mmol/L (21.0-32.0); CHLORIDE - SERUM 103 mmol/L (98-107); EOSINOPHILS 2.9 % (0-7); GLUCOSE 84 mg/dL (74-106); HEMATOCRIT 33.1 % (42.0-54.0); HEMOGLOBIN 10.4 g/dL (13.5-17.5); IMMATURE GRANULOCYTES 0.4 % (0-5); MCH 22.7 pg (26.0-34.0); MCHC 31.4 g/dL (31.0-37.0); MCV 72.3 fL (80.0-100.0); MEAN PLATELET VOLUME 8.4 fL (7.4-10.4); MONOCYTES 10.4 % (2-11); NEUTROPHILS 64.9 % (40-80); PLATELET COUNT 189 10x3/uL (130-400); RBC 4.58 10x6/uL (4.20-6.10); SODIUM 139 mmol/L (136-145); UREA NITROGEN 22 mg/dL (7-18); WBC 6.9 10x3/uL (4.8-10.8); eGFR NON AFRICAN AMERICAN 78 mL/min (90-120)
--- NOTE | 2019-07-18 07:25 | NUR ---
ASSESSMENT DONE. DENIES NEEDS
[2019-07-18 08:25] VITALS: BP 115/64
[2019-07-18 11:33] VITALS: BP 119/65
--- NOTE | 2019-07-18 11:52 | MORECARE ---
CASE MANAGEMENT DISCHARGE SUMMARY PATIENT: ONUR SHERMAN UNIT: [id number] ADM DATE: 07/11/19 AGE: 69 : 49 SEX: M ROOM/BED: D.7948 AUTHOR: CAMERON OROZCO PHYSICIAN: REFERRING PHYSICIAN: LEISA ISRAEL MD DATE OF SERVICE: 07/18/19 Discharge Plan Patient Name: ONUR SHERMAN Facility: [facility]:[place] : 1950 Planned Disposition: Inpatient Rehab Anticipated Discharge Date: 07/18/19 Discharge Date: Expected LOS: 7 Initial Reviewer: [id number] Initial Review Date: 07/17/2019 Generated: 07/18/19 12:52 pm Comments DCP- Discharge Planning Updated by [id number]: Rell Dacosta on 07/18/19 10:[address] Patient Name: ONUR SHERMAN Encounter No: [id number] : 1950 Primary Insurance: MEDICARE A & B Anticipated DC Date: 07-18-2019 Planned Disposition: Inpatient Rehab External [facility] DCP follow-up note: CM CALLED [facility], , SHE IS CONCERNED THAT PT MAY NOT BE ABLE TO TOLERATE THREE HOURS OF THERAPY AND ATTEMPTED TO MEET WITH PT THIS MORNING, BUT PT WAS IN THE BATHROOM; [facility] TO EVALUATE SOON POSSIBLE TODAY. CM FAXED REFERRAL UPDATE TO [facility] AT [phone]. CM WAITING ADMISSION DETERMINATION FROM [facility]. Radiographic Technologist: Rell Dacosta DCP- Discharge Planning Updated by [id number]: Rell Dacosta on 07/17/19 3:[address] Patient Name: ONUR SHERMAN Admission Status: ER Accout number: [id number] Admission Date: 07-11-2019 : 1950 Admission Diagnosis:SHORTNESS OF BREATH Attending: LEISA ISRAEL Current LOS: 6 Anticipated DC Date: 07-18-2019 Planned Disposition: Inpatient Rehab Primary Insurance: MEDICARE A & B [facility]ANNED [facility] Discharge Planning Comments: CM RECEIVED TELEPHONE CALL FROM MAYRA SHERMAN, PT'Polo LI, , WHO REPORTS THAT PT HAS GIRLFRIEND OF 20 YEARS THAT IS NO HELP AT HOME TO PATIENT AND THAT PT'S SON IS NOT MEDICALLY ABLE TO ASSIST PATIENT AT HOME. MAYRA REPORTS PT MAY DISCHARGE HOME SOON AND HE NEEDS TO GO TO REHAB SOMEWHERE AND MAYAR STATES SHE NEEDS TO HAVE A HOSPICE CONVERSATION WITH PT. CM EXPLAINED TO MAYRA THAT CM WILL SPEAK TO PT REGARDING DISCHARGE PLANNING AND COULD SHARE NO INFORMATION WITH HER SHE IS NOT LISTED ON PT'S CONTACT LIST. CM MET WITH PT IN ROOM TO DISCUSS DISCHARGE PLANNING AND NEEDS. PT REPORTS LIVING AT HOME INDEPENDENTLY WITH HIS GIRLFRIEND. PT HAS AN OLD WALKER FROM THE [employer] THAT HE BOUGHT WITH NO MEDICAL EQUIPMENT PROVIDER [employer]. PT HAS AND NO OUTSIDE SERVICES ASSISTING IN THE HOME. MAYRA SHERMAN ARRIVED. PT GAVE PERMISSION TO DISCUSS HIS CARE AND TREATMENT WITH MAYRA AND IN HER PRESENCE. CM DISCUSSED AVAILABILITY OF HOME HEALTH, REHAB SERVICES AND MEDICAL EQUIPMENT. PT REPORTS HE NEEDS REHAB AND WOULD LIKE REFERRED TO [facility] ON [address]. IMPORTANT MESSAGE FROM MEDICARE PROVIDED AND EXPLAINED. CM MET WITH DR. ISRAEL AT [facility], INFORMED OF ABOVE, DR REPORTS PT IS READY TO DISCHARGE IF AND WHEN ACCEPTED TO REHAB. CM CALLED [facility], , PROVIDED REFERRAL INFORMATION, [facility] TO EVALUATE SOON POSSIBLE. CM FAXED REFERRAL TO [facility] AT [phone]. CM WAITING ADMISSION DETERMINATION FROM [facility] ([facility]) [facility]. Radiographic Technologist: Rell Dacosta DCPIA - Discharge Planning Initial Assessment Updated by [id number]: Rell Dacosta on 07/17/19 4:00 pm * Is the patient Alert and Oriented? Yes * How many steps to enter\exit or inside your home? RAMP * PCP DR. ISRAEL * Pharmacy [facility] * Preadmission Environment Home with Family * ADLs Independent * Equipment Walker * Other Equipment NO MEDICAL EQUIPMENT PROVIDER PREFERENCE * List name and contact numbers for known caregivers / representatives who currently or will assist patient after discharge: JULISA JULY, SIGNIFICANT OTHER, * Verbal permission to speak to the caregivers and representatives has been obtained from the patient. Yes * Community resources currently utilized None * Please name any agencies selected above. NONE * Additional services required to return to the preadmission environment? Yes * Can the patient safely return to the preadmission environment? Yes * Has this patient been hospitalized within the prior 30 days at any hospital? No Coverage Notice Reviewer: [id number] Abbi Dacosta Notice Issued Date-Time: 07/17/2019 12:30 Notice Type: IM Discharge Notice Notice Delivered To: Patient Relationship to Patient: Shoe Shiner Name: Delivery Method: HAND - Hand Delivered Adamaris Days: Prior Verbal Notification: Recipient Understood Notice: Yes Recipient Signature: Yes Med Rec Note Co-signed by Attending: Coverage Notice Comment: Last DP export: 07/17/19 3:08 p Patient Name: ONUR SHERMAN Page [id number] at 1152 All edits/amendments must be made on the electronic document DICTATION DATE: 07/18/19 1152 INSIDE SALES ASSOCIATE: LOGAN 07/18/19 1152 RPT#: [id number] DC DATE: STATUS: ADM IN [facility] [address] [place] [address] END OF REPORT
--- NOTE | 2019-07-18 14:22 | NUR ---
I have reviewed this patient and I concur with the Shift Assessment completed by the Licensed Practical Nurse today this shift.
--- NOTE | 2019-07-18 14:46 | MORECARE ---
CASE MANAGEMENT DISCHARGE SUMMARY PATIENT: ONUR SHERMAN UNIT: [id number] ADM DATE: 07/11/19 AGE: 69 : 49 SEX: M ROOM/BED: D.6231 AUTHOR: CAMERON OROZCO PHYSICIAN: REFERRING PHYSICIAN: LEISA ISRAEL MD DATE OF SERVICE: 07/18/19 Discharge Plan Patient Name: ONUR SHERMAN Facility: [facility]:[place] : 1950 Planned Disposition: Inpatient Rehab Anticipated Discharge Date: 07/18/19 Discharge Date: Expected LOS: 7 Initial Reviewer: [id number] Initial Review Date: 07/17/2019 Generated: 07/18/19 3:46 pm Comments DCP- Discharge Planning Updated by [email or web address]: Rell Dacosta on 07/18/19 10:[address] Patient Name: ONUR SHERMAN Encounter No: [id number] : 1950 Primary Insurance: MEDICARE A & B Anticipated DC Date: 07-18-2019 Planned Disposition: Inpatient Rehab External [facility] DCP follow-up note: CM CALLED [facility], , SHE IS CONCERNED THAT PT MAY NOT BE ABLE TO TOLERATE THREE HOURS OF THERAPY AND ATTEMPTED TO MEET WITH PT THIS MORNING, BUT PT WAS IN THE BATHROOM; SANTA TO EVALUATE SOON POSSIBLE TODAY. CM FAXED REFERRAL UPDATE TO [facility] AT [phone]. CM WAITING ADMISSION DETERMINATION FROM [facility]. Coatings Inspector: Rell Dacosta DCP- Discharge Planning Updated by [id number]: Rell Dacosta on 07/17/19 3:[address] Patient Name: ONUR SHERMAN Admission Status: ER Accout number: [id number] Admission Date: 07-11-2019 : 1950 Admission Diagnosis:SHORTNESS OF BREATH Attending: LEISA ISRAEL Current LOS: 6 Anticipated DC Date: 07-18-2019 Planned Disposition: Inpatient Rehab Primary Insurance: MEDICARE A & B PLANNED EXTERNAL PROVIDER[facility] Discharge Planning Comments: CM RECEIVED TELEPHONE CALL FROM MAYRA SHERMAN, PT'Polo LI, , WHO REPORTS THAT PT HAS GIRLFRIEND OF 20 YEARS THAT IS NO HELP AT HOME TO PATIENT AND THAT PT'S SON IS NOT MEDICALLY ABLE TO ASSIST PATIENT AT HOME. MAYRA REPORTS PT MAY DISCHARGE HOME SOON AND HE NEEDS TO GO TO REHAB SOMEWHERE AND MAYRA STATES SHE NEEDS TO HAVE A HOSPICE CONVERSATION WITH PT. CM EXPLAINED TO MAYRA THAT CM WILL SPEAK TO PT REGARDING DISCHARGE PLANNING AND COULD SHARE NO INFORMATION WITH HER SHE IS NOT LISTED ON PT'S CONTACT LIST. CM MET WITH PT IN ROOM TO DISCUSS DISCHARGE PLANNING AND NEEDS. PT REPORTS LIVING AT HOME INDEPENDENTLY WITH HIS GIRLFRIEND. PT HAS AN OLD WALKER FROM THE [employer] THAT HE BOUGHT WITH NO MEDICAL EQUIPMENT PROVIDER [employer]. PT HAS AND NO OUTSIDE SERVICES ASSISTING IN THE HOME. MAYRA SHERMAN ARRIVED. PT GAVE PERMISSION TO DISCUSS HIS CARE AND TREATMENT WITH MAYRA AND IN HER PRESENCE. CM DISCUSSED AVAILABILITY OF HOME HEALTH, REHAB SERVICES AND MEDICAL EQUIPMENT. PT REPORTS HE NEEDS REHAB AND WOULD LIKE REFERRED TO [facility] ON [address] IMPORTANT MESSAGE FROM MEDICARE PROVIDED AND EXPLAINED. CM MET WITH DR. ISRAEL AT [facility], INFORMED OF ABOVE, DR REPORTS PT IS READY TO DISCHARGE IF AND WHEN ACCEPTED TO REHAB. CM CALLED [facility] OF [facility], , PROVIDED REFERRAL INFORMATION, SANTA TO EVALUATE SOON POSSIBLE. CM FAXED REFERRAL TO [facility] AT [phone]. CM WAITING ADMISSION DETERMINATION FROM [facility] ([facility]) [facility] [place]. Coatings Inspector: Rell Dacosta DCPIA - Discharge Planning Initial Assessment Updated by [id number]: Rell Dacosta on 07/17/19 4:00 pm * Is the patient Alert and Oriented? Yes * How many steps to enter\exit or inside your home? RAMP * PCP DR. ISRAEL * Pharmacy [facility] * Preadmission Environment Home with Family * ADLs Independent * Equipment Walker * Other Equipment NO MEDICAL EQUIPMENT PROVIDER [employer] * List name and contact numbers for known caregivers / representatives who currently or will assist patient after discharge: JULISA JULY, SIGNIFICANT OTHER, * Verbal permission to speak to the caregivers and representatives has been obtained from the patient. Yes * Community resources currently utilized None * Please name any agencies selected above. NONE * Additional services required to return to the preadmission environment? Yes * Can the patient safely return to the preadmission environment? Yes * Has this patient been hospitalized within the prior 30 days at any hospital? No External Providers External Provider: [facility] Patient-[place] Next Contact Date: 07/18/2019 Service Request Date: Service Type: Resolution: Reviewer: Comments: Coverage Notice Reviewer: [id number] - Rell Praneeth Notice Issued Date-Time: 07/17/2019 12:30 Notice Type: IM Discharge Notice Notice Delivered To: Patient Relationship to Patient: Company Controller Name: Delivery Method: HAND - Hand Delivered Adamaris Days: Prior Verbal Notification: Recipient Understood Notice: Yes Recipient Signature: Yes Med Rec Note Co-signed by Attending: Coverage Notice Comment: Last DP export: 07/18/19 10:52 a Patient Name: ONUR SHERMAN Page 11757 at 1446 All edits/amendments must be made on the electronic document DICTATION DATE: 07/18/19 1446 ROUTE PROCESS ADMINISTRATOR: LOGAN 07/18/19 1446 RPT#: [id number] DC DATE: STATUS: ADM IN [facility] [address] [place] [address] END OF REPORT
[2019-07-18 14:51] VITALS: BP 113/66
--- NOTE | 2019-07-18 15:18 | MORECARE ---
CASE MANAGEMENT DISCHARGE SUMMARY PATIENT: ONUR SHERMAN UNIT: [id number] ADM DATE: 07/11/19 AGE: 69 : 49 SEX: M ROOM/BED: D.8514 AUTHOR: CAMERON OROZCO PHYSICIAN: REFERRING PHYSICIAN: LEISA ISRAEL MD DATE OF SERVICE: 07/18/19 Discharge Plan Patient Name: ONUR SHERMAN Facility: [facility]:[place] : 1950 Planned Disposition: Inpatient Rehab Anticipated Discharge Date: 07/19/19 Discharge Date: Expected LOS: 8 Initial Reviewer: [email or web address] Initial Review Date: 07/17/2019 Generated: 07/18/19 4:17 pm Comments DCP- Discharge Planning Updated by [email or web address]: Rell Dacosta on 07/18/19 10:[address] Patient Name: ONUR SHERMAN Encounter No: [id number] : 1950 Primary Insurance: MEDICARE A & B Anticipated DC Date: 07-18-2019 Planned Disposition: Inpatient Rehab External [facility] DCP follow-up note: CM CALLED [facility] OF [facility], , SHE IS CONCERNED THAT PT MAY NOT BE ABLE TO TOLERATE THREE HOURS OF THERAPY AND ATTEMPTED TO MEET WITH PT THIS MORNING, BUT PT WAS IN THE BATHROOM; SANTA TO EVALUATE SOON POSSIBLE TODAY. CM FAXED REFERRAL UPDATE TO [facility] AT [phone]. CM WAITING ADMISSION DETERMINATION FROM [facility]. Movement Assembly Final Inspector: Rell Dacosta DCP- Discharge Planning Updated by [email or web address]: Rell Dacosta on 07/17/19 3:[address] Patient Name: ONUR SHERMAN Admission Status: ER Accout number: [id number] Admission Date: 07-11-2019 : 1950 Admission Diagnosis:SHORTNESS OF BREATH Attending: LEISA ISRAEL Current LOS: 6 Anticipated DC Date: 07-18-2019 Planned Disposition: Inpatient Rehab Primary Insurance: MEDICARE A & B PLANNED EXTERNAL PROVID[facility] Discharge Planning Comments: CM RECEIVED TELEPHONE CALL FROM MAYRA SHERMAN, PT'Polo LI, , WHO REPORTS THAT PT HAS GIRLFRIEND OF 20 YEARS THAT IS NO HELP AT HOME TO PATIENT AND THAT PT'S SON IS NOT MEDICALLY ABLE TO ASSIST PATIENT AT HOME. MAYRA REPORTS PT MAY DISCHARGE HOME SOON AND HE NEEDS TO GO TO REHAB SOMEWHERE AND MAYRA STATES SHE NEEDS TO HAVE A HOSPICE CONVERSATION WITH PT. CM EXPLAINED TO MAYRA THAT CM WILL SPEAK TO PT REGARDING DISCHARGE PLANNING AND COULD SHARE NO INFORMATION WITH HER SHE IS NOT LISTED ON PT'S CONTACT LIST. CM MET WITH PT IN ROOM TO DISCUSS DISCHARGE PLANNING AND NEEDS. PT REPORTS LIVING AT HOME INDEPENDENTLY WITH HIS GIRLFRIEND. PT HAS AN OLD WALKER FROM THE [employer] THAT HE BOUGHT WITH NO MEDICAL EQUIPMENT PROVIDER [employer]. PT HAS AND NO OUTSIDE SERVICES ASSISTING IN THE HOME. MAYRA SHERMAN ARRIVED. PT GAVE PERMISSION TO DISCUSS HIS CARE AND TREATMENT WITH MAYRA AND IN HER PRESENCE. CM DISCUSSED AVAILABILITY OF HOME HEALTH, REHAB SERVICES AND MEDICAL EQUIPMENT. PT REPORTS HE NEEDS REHAB AND WOULD LIKE REFERRED TO [facility] ON [address]. IMPORTANT MESSAGE FROM MEDICARE PROVIDED AND EXPLAINED. CM MET WITH DR. ISRAEL AT [facility], INFORMED OF ABOVE, DR REPORTS PT IS READY TO DISCHARGE IF AND WHEN ACCEPTED TO REHAB. CM CALLED [facility] OF [facility], , PROVIDED REFERRAL INFORMATION, SANT[facility] TO EVALUATE SOON POSSIBLE. CM FAXED REFERRAL TO [facility] AT [phone]. CM WAITING ADMISSION DETERMINATION FROM [facility] ([facility]) REH[facility] OF [place]. Movement Assembly Final Inspector: Rell Dacosta DCPIA - Discharge Planning Initial Assessment Updated by [id number]: Rell Dacosta on 07/17/19 4:00 pm * Is the patient Alert and Oriented? Yes * How many steps to enter\exit or inside your home? RAMP * PCP DR. ISRAEL * Pharmacy [facility] * Preadmission Environment Home with Family * ADLs Independent * Equipment Walker * Other Equipment NO MEDICAL EQUIPMENT PROVIDER PREFERENCE * List name and contact numbers for known caregivers / representatives who currently or will assist patient after discharge: JULISA JULY, SIGNIFICANT OTHER, * Verbal permission to speak to the caregivers and representatives has been obtained from the patient. Yes * Community resources currently utilized None * Please name any agencies selected above. NONE * Additional services required to return to the preadmission environment? Yes * Can the patient safely return to the preadmission environment? Yes * Has this patient been hospitalized within the prior 30 days at any hospital? No Coverage Notice Reviewer: [id number] Abbi Dacosta Notice Issued Date-Time: 07/17/2019 12:30 Notice Type: IM Discharge Notice Notice Delivered To: Patient Relationship to Patient: Programming Internship Name: Delivery Method: HAND - Hand Delivered Adamaris Days: Prior Verbal Notification: Recipient Understood Notice: Yes Recipient Signature: Yes Med Rec Note Co-signed by Attending: Coverage Notice Comment: Last DP export: 07/18/19 1:46 p Patient Name: ONUR SHERMAN Page [id number] at 1518 All edits/amendments must be made on the electronic document DICTATION DATE: 07/18/191516 GOVERNMENT AFFAIRS MANAGER: LOGAN 07/18/191516 RPT#: [id number] DC DATE: STATUS: ADM IN [facility] [address] [place] [address] END OF REPORT
--- NOTE | 2019-07-18 15:41 | MORECARE ---
CASE MANAGEMENT DISCHARGE SUMMARY PATIENT: ONUR SHERMAN UNIT: [id number] ADM DATE: 07/11/19 AGE: 69 : 49 SEX: M ROOM/BED: D.4533 AUTHOR: PAMDOC PHYSICIAN: REFERRING PHYSICIAN: LEISA ISRAEL MD DATE OF SERVICE: 07/18/19 Discharge Plan Patient Name: ONUR SHERMAN [facility] [facility] 1950 Planned Disposition: Inpatient Rehab Anticipated Discharge Date: 07/18/19 Discharge Date: Expected LOS: 7 Initial Reviewer: [id number] Initial Review Date: 07/17/2019 Generated: 07/18/19 4:41 pm Comments DCP- Discharge Planning Updated by [email or web address]: Rell Dacosta on 07/18/19 2:[address] Patient Name: ONUR SHERMAN Encounter No: [id number] : 1950 Primary Insurance: MEDICARE A & B Anticipated DC Date: 07-18-2019 Planned Disposition: Inpatient Rehab External Planned Provider: [facility] DCP follow-up note: CM RECEIVED CALL FROM [facility] OF [facility], , THEY WILL ACCEPT PT IF PT CAN OBTAIN A BIPAP. CM PAGED AND SPOKE TO DR. DICKERSON WHO PROVIDED BIPAP ORDER. CM SPOKE TO PT AND HIS NEICEMAYRA, WHO ASKED FOR [facility] TO PROVIDE BIPAP. PT HAD REMOVED HIS BIPAP MASK IN THE ROOM PRIOR TO CM ENTERING AND STATED HE TOOK IT OFF BECAUSE HE WANTED IT OFF. CHOICE SIGNED. CLARE CALLED [facility], SPOKE TO BLAIR WHO INFORMED CM THAT PT NEEDS CURRENT SLEEPSTUDY TO OBTAIN BIPAP. CM CALLED DR. SCOTT'S OFFICE AND ALVARADO, PT HAS NO RECORD OF SLEEP STUDY. [facility] RECORDS SEARCH INDICATES SLEEP STUDY ON 12-18-2014. CLARE CALLED AND SPOKE TO HENRIQUE AT [facility] WHO INFORMED CM THAT WITH PT'S NON COMPLIANCE WITH BIPAP, HE WOULD NOT NEED THE ENTIRE SLEEP STUDY, ONLY THE OVERNIGHT TITRATION DONE IN THE OUTPATIENT SLEEP STUDY. CM CALLED AND NOTIFIED SANTA THAT BIPAP IS NOT AN OPTION UNTIL OUTPATIENT TITRATION IN SLEEP STUDY CAN BE DONE. SANTA REPORTS THEY WILL ACCEPT TODAY. PT NOTIFIED AND IN AGREEMENT WITH DISCHARGE TO REHAB TODAY. CM NOTIFIED DR. MONTELONGO FOR DISCHARGE. CM NOTIFIED DR. DICKERSON OF INABILITY TO OBTAIN BIPAP, ADVISES PT OK TO DISCHAGE FROM PULMONARY STANDPOINT WITHOUT BIPAP. FOR DISCHARGE, FAX DISCHARGE INFORMATION TO [facility] AT [phone]. [facility] TO CALL WITH ROOM NUMBER AND NUMBER FOR NURSE REPORT. [facility] TO ARRANGE VAN TRANSPORTATION. Rell Dacosta, CASE MANAGEMENT DCP- Discharge Planning Updated by [id number]: Rell Dacosta on 07/18/19 10:[address] Patient Name: ONUR SHERMAN Encounter No: [id number] : 1950 Primary Insurance: MEDICARE A & B Anticipated DC Date: 07-18-2019 Planned Disposition: Inpatient Rehab External Planned Provider: [facility] DCP follow-up note: CM CALLED [facility] OF [facility], , SHE IS CONCERNED THAT PT MAY NOT BE ABLE TO TOLERATE THREE HOURS OF THERAPY AND ATTEMPTED TO MEET WITH PT THIS MORNING, BUT PT WAS IN THE BATHROOM; S[facility] TO EVALUATE SOON POSSIBLE TODAY. CM FAXED REFERRAL UPDATE TO [facility] AT [phone]. CM WAITING ADMISSION DETERMINATION FROM [facility]. Tool Maintenance Worker: Rell Dacosta DCP- Discharge Planning Updated by [email or web address]: Rell Dacosta on 07/17/19 3:[address] Patient Name: ONUR SHERMAN Admission Status: ER Accout number: [id number] Admission Date: 07-11-2019 : 1950 Admission Diagnosis:SHORTNESS OF BREATH Attending: LEISA ISRAEL Current LOS: 6 Anticipated DC Date: 07-18-2019 Planned Disposition: Inpatient Rehab Primary Insurance: MEDICARE A & B PLANNED EXTERNAL PROVID[facility] Discharge Planning Comments: CM RECEIVED TELEPHONE CALL FROM MAYRA SHERMAN, PT'S GUILLERMO, , WHO REPORTS THAT PT HAS GIRLFRIEND OF 20 YEARS THAT IS NO HELP AT HOME TO PATIENT AND THAT PT'S SON IS NOT MEDICALLY ABLE TO ASSIST PATIENT AT HOME. MAYRA REPORTS PT MAY DISCHARGE HOME SOON AND HE NEEDS TO GO TO REHAB SOMEWHERE AND MAYRA STATES SHE NEEDS TO HAVE A HOSPICE CONVERSATION WITH PT. CM EXPLAINED TO MAYRA THAT CM WILL SPEAK TO PT REGARDING DISCHARGE PLANNING AND COULD SHARE NO INFORMATION WITH HER SHE IS NOT LISTED ON PT'S CONTACT LIST. CM MET WITH PT IN ROOM TO DISCUSS DISCHARGE PLANNING AND NEEDS. PT REPORTS LIVING AT HOME INDEPENDENTLY WITH HIS GIRLFRIEND. PT HAS AN OLD WALKER FROM THE [employer] THAT HE BOUGHT WITH NO MEDICAL EQUIPMENT PROVIDER [employer]. PT HAS AND NO OUTSIDE SERVICES ASSISTING IN THE HOME. MAYRA SHERMAN ARRIVED. PT GAVE PERMISSION TO DISCUSS HIS CARE AND TREATMENT WITH MAYRA AND IN HER PRESENCE. CM DISCUSSED AVAILABILITY OF HOME HEALTH, REHAB SERVICES AND MEDICAL EQUIPMENT. PT REPORTS HE NEEDS REHAB AND WOULD LIKE REFERRED TO [facility] ON [address]. IMPORTANT MESSAGE FROM MEDICARE PROVIDED AND EXPLAINED. CM MET WITH DR. ISRAEL AT [facility], INFORMED OF ABOVE, DR REPORTS PT IS READY TO DISCHARGE IF AND WHEN ACCEPTED TO REHAB. CM CALLED [facility] OF [facility], , PROVIDED REFERRAL INFORMATION, S[facility]A TO EVALUATE SOON POSSIBLE. CM FAXED REFERRAL TO [facility] AT [phone]. CM WAITING ADMISSION DETERMINATION FROM [facility] Tool Maintenance Worker: Rell Dacosta DCPIA - Discharge Planning Initial Assessment Updated by [id number]: Rell Dacosta on 07/17/19 4:00 pm * Is the patient Alert and Oriented? Yes * How many steps to enter\exit or inside your home? RAMP * PCP DR. ISRAEL * Pharmacy [facility] * Preadmission Environment Home with Family * ADLs Independent * Equipment Walker * Other Equipment NO MEDICAL EQUIPMENT PROVIDER PREFERENCE * List name and contact numbers for known caregivers / representatives who currently or will assist patient after discharge: JULISA MCDOWELL, SIGNIFICANT OTHER, * Verbal permission to speak to the caregivers and representatives has been obtained from the patient. Yes * Community resources currently utilized None * Please name any agencies selected above. NONE * Additional services required to return to the preadmission environment? Yes * Can the patient safely return to the preadmission environment? Yes * Has this patient been hospitalized within the prior 30 days at any hospital? No Coverage Notice Reviewer: [id number] - Rell Daocsta Notice Issued Date-Time: 07/17/2019 12:30 Notice Type: IM Discharge Notice Notice Delivered To: Patient Relationship to Patient: Privacy Specialist Name: Delivery Method: HAND - Hand Delivered Adamaris Days: Prior Verbal Notification: Recipient Understood Notice: Yes Recipient Signature: Yes Med Rec Note Co-signed by Attending: Coverage Notice Comment: Last DP export: 07/18/19 2:18 p Patient Name: ONUR SHERMAN Page 49513 at 1541 All edits/amendments must be made on the electronic document DICTATION DATE: 07/18/19 154 TIGHT BARREL INSPECTOR: LOGAN 07/18/19 1541 RPT#: [id number] DC DATE: STATUS: ADM IN [facility] [address] [place] [address] END OF REPORT
[2019-07-18] MEDS ORDERED: XARELTO20 MG PO (15:47)
[2019-07-18] MEDS ORDERED: LEXAPRO10 MG PO (15:48)
[2019-07-18] MEDS ORDERED: ENTRESTO 24 MG1 EACH PO (15:48)
[2019-07-18] MEDS ORDERED: K-DUR20 MEQ PO (15:49)
--- NOTE | 2019-07-18 17:17 | MORECARE ---
CASE MANAGEMENT DISCHARGE SUMMARY PATIENT: ONUR SHERMAN UNIT: [id number] ADM DATE: 07/11/19 AGE: 69 : [birth year] SEX: M ROOM/BED: D.7544 AUTHOR: PAM,DOC PHYSICIAN: REFERRING PHYSICIAN: LEISA ISRAEL MD DATE OF SERVICE: 07/18/19 Discharge Plan Patient Name: ONUR SHERMAN Facility: [facility]:[place] : 1950 Planned Disposition: Inpatient Rehab Anticipated Discharge Date: 07/18/19 Discharge Date: Expected LOS: 7 Initial Reviewer: [email or web address] Initial Review Date: 07/17/2019 Generated: 07/18/19 6:17 pm Comments DCP- Discharge Planning Updated by [id number]: Rell Dacosta on 07/18/19 4:[address] Patient Name: ONUR SHERMAN Encounter No: [id number] : 1950 Primary Insurance: MEDICARE A & B Anticipated DC Date: 07-18-2019 Planned Disposition: Inpatient Rehab External [facility] DCP follow-up note: CM RECEIVED CALL FROM SAUL OF [facility] WHO PROVIDED THE FOLLOWING INFORMATION: PT TO ADMIT TO [address] TO SET UP [employer]SP[facility] FOR PHARMACY CONSULTANT AT 1800 HOURS TONIGHT. NURSE REPORT TO BE CALLED TO [facility] AT [phone]. DIRECTOR DATA ANALYTICS NURSE NOTIFIED. Rell Dacosta CASE MANAGEMENT DCP- Discharge Planning Updated by [email or web address]: Rell Dacosta on 07/18/19 2:[address] Patient Name: ONUR SHERMAN Encounter No: [id number] : 1950 Primary Insurance: MEDICARE A & B Anticipated DC Date: 07-18-2019 Planned Disposition: Inpatient Rehab External Planned Provider: [facility] DCP follow-up note: CM RECEIVED CALL FROM SANTA OF [facility], , THEY WILL ACCEPT PT IF PT CAN OBTAIN A BIPAP. CM PAGED AND SPOKE TO DR. DICKERSON WHO PROVIDED BIPAP ORDER. CM SPOKE TO PT AND HIS NEICEMAYRA, WHO ASKED FOR [facility] TO PROVIDE BIPAP. PT HAD REMOVED HIS BIPAP MASK IN THE ROOM PRIOR TO CM ENTERING AND STATED HE TOOK IT OFF BECAUSE HE WANTED IT OFF. CHOICE SIGNED. CM CALLED [facility], SPOKE TO BLAIR WHO INFORMED CM THAT PT NEEDS CURRENT SLEEPSTUDY TO OBTAIN BIPAP. CM CALLED DR. SCOTT'S OFFICE AND ALVARADO, PT HAS NO RECORD OF SLEEP STUDY. [facility] RECORDS SEARCH INDICATES SLEEP STUDY ON 12-18-2014. CM CALLED AND SPOKE TO HENRIQUE AT [facility] WHO INFORMED CM THAT WITH PT'S NON COMPLIANCE WITH BIPAP, HE WOULD NOT NEED THE ENTIRE SLEEP STUDY, ONLY THE OVERNIGHT TITRATION DONE IN THE OUTPATIENT SLEEP STUDY. CM CALLED AND NOTIFIED SANTA THAT BIPAP IS NOT AN OPTION UNTIL OUTPATIENT TITRATION IN SLEEP STUDY CAN BE DONE. [facility] REPORTS THEY WILL ACCEPT TODAY. PT NOTIFIED AND IN AGREEMENT WITH DISCHARGE TO REHAB TODAY. CM NOTIFIED DR. MONTELONGO FOR DISCHARGE. CM NOTIFIED DR. DICKERSON OF INABILITY TO OBTAIN BIPAP, ADVISES PT OK TO DISCHAGE FROM PULMONARY STANDPOINT WITHOUT BIPAP. FOR DISCHARGE, FAX DISCHARGE INFORMATION TO [facility] AT [phone]. [facility] TO CALL WITH ROOM NUMBER AND NUMBER FOR NURSE REPORT. [facility] TO ARRANGE VAN TRANSPORTATION. Rell Dacosta, CASE MANAGEMENT DCP- Discharge Planning Updated by [email or web address]: Rell Dacosta on 07/18/19 10:[address] Patient Name: ONUR SHERMAN Encounter No: [id number] : 1950 Primary Insurance: MEDICARE A & B Anticipated DC Date: 07-18-2019 Planned Disposition: Inpatient Rehab External Planned Provider: [facility] DCP follow-up note: CLARE CALLED SANTA OF [facility], , SHE IS CONCERNED THAT PT MAY NOT BE ABLE TO TOLERATE THREE HOURS OF THERAPY AND ATTEMPTED TO MEET WITH PT THIS MORNING, BUT PT WAS IN THE BATHROOM; [facility] TO EVALUATE SOON POSSIBLE TODAY. CM FAXED REFERRAL UPDATE TO [facility] AT [phone]. CM WAITING ADMISSION DETERMINATION FROM [facility]. Director Of Promotions: Rell Dacosta DCP- Discharge Planning Updated by [id number]: Rell Dacosta on 07/17/19 3:[address] Patient Name: ONUR SHERMAN Admission Status: ER Accout number: [id number] Admission Date: 07-11-2019 : 1950 Admission Diagnosis:SHORTNESS OF BREATH Attending: LEISA ISRAEL Current LOS: 6 Anticipated DC Date: 07-18-2019 Planned Disposition: Inpatient Rehab Primary Insurance: MEDICARE A & B PLANNED EXTERNAL PROVIDER: [facility], [place] Discharge Planning Comments: CM RECEIVED TELEPHONE CALL FROM MAYRA SHERMAN, PT'S GUILLERMO, , WHO REPORTS THAT PT HAS GIRLFRIEND OF 20 YEARS THAT IS NO HELP AT HOME TO PATIENT AND THAT PT'S SON IS NOT MEDICALLY ABLE TO ASSIST PATIENT AT HOME. MAYRA REPORTS PT MAY DISCHARGE HOME SOON AND HE NEEDS TO GO TO REHAB SOMEWHERE AND MAYRA STATES SHE NEEDS TO HAVE A HOSPICE CONVERSATION WITH PT. CM EXPLAINED TO MAYRA THAT CM WILL SPEAK TO PT REGARDING DISCHARGE PLANNING AND COULD SHARE NO INFORMATION WITH HER SHE IS NOT LISTED ON PT'S CONTACT LIST. CM MET WITH PT IN ROOM TO DISCUSS DISCHARGE PLANNING AND NEEDS. PT REPORTS LIVING AT HOME INDEPENDENTLY WITH HIS GIRLFRIEND. PT HAS AN OLD WALKER FROM THE [employer] THAT HE BOUGHT WITH NO MEDICAL EQUIPMENT PROVIDER PREFERNECE. PT HAS AND NO OUTSIDE SERVICES ASSISTING IN THE HOME. MAYRA SHERMAN ARRIVED. PT GAVE PERMISSION TO DISCUSS HIS CARE AND TREATMENT WITH MAYRA AND IN HER PRESENCE. CM DISCUSSED AVAILABILITY OF HOME HEALTH, REHAB SERVICES AND MEDICAL EQUIPMENT. PT REPORTS HE NEEDS REHAB AND WOULD LIKE REFERRED TO [facility] ON [address] IMPORTANT MESSAGE FROM MEDICARE PROVIDED AND EXPLAINED. CM MET WITH DR. ISRAEL AT [facility] [place], INFORMED OF ABOVE, DR REPORTS PT IS READY TO DISCHARGE IF AND WHEN ACCEPTED TO REHAB. CM CALLED [facility] OF [facility], , PROVIDED REFERRAL INFORMATION, SANTA TO EVALUATE SOON POSSIBLE. CM FAXED REFERRAL TO [facility] AT [phone]. CM WAITING ADMISSION DETERMINATION FROM [facility] ([facility]) [facility] [place]. Director Of Promotions: Rell Dacosta DCPIA - Discharge Planning Initial Assessment Updated by [id number]: Rell Dacosta on 07/17/19 4:00 pm * Is the patient Alert and Oriented? Yes * How many steps to enter\exit or inside your home? RAMP * PCP DR. ISRAEL * Pharmacy [facility] * Preadmission Environment Home with Family * ADLs Independent * Equipment Walker * Other Equipment NO MEDICAL EQUIPMENT PROVIDER PREFERENCE * List name and contact numbers for known caregivers / representatives who currently or will assist patient after discharge: JULISA MCDOWELL, SIGNIFICANT OTHER, * Verbal permission to speak to the caregivers and representatives has been obtained from the patient. Yes * Community resources currently utilized None * Please name any agencies selected above. NONE * Additional services required to return to the preadmission environment? Yes * Can the patient safely return to the preadmission environment? Yes * Has this patient been hospitalized within the prior 30 days at any hospital? No Coverage Notice Reviewer: [id number] Dacosta Notice Issued Date-Time: 07/17/2019 12:30 Notice Type: IM Discharge Notice Notice Delivered To: Patient Relationship to Patient: Hat Body Sorter Name: Delivery Method: HAND - Hand Delivered Adamaris Days: Prior Verbal Notification: Recipient Understood Notice: Yes Recipient Signature: Yes Med Rec Note Co-signed by Attending: Coverage Notice Comment: Reviewer: JOSE LUIS Dacosta Notice Issued Date-Time: 07/18/2019 14:40 Notice Type: Patient Choice Letter Notice Delivered To: Patient Relationship to Patient: Hat Body Sorter Name: Delivery Method: HAND - Hand Delivered Adamaris Days: Prior Verbal Notification: Recipient Understood Notice: Yes Recipient Signature: Yes Med Rec Note Co-signed by Attending: Coverage Notice Comment: [facility]. Last DP export: 07/18/19 2:41 p Patient Name: ONUR SHERMAN Page [id number] at 1717 All edits/amendments must be made on the electronic document DICTATION DATE: 07/18/191716 LOAN CLOSER: LOGAN 07/18/191716 RPT#: [id number] DC DATE: STATUS: ADM IN [facility] [address] [place] [address] END OF REPORT
--- NOTE | 2019-07-18 17:53 | NUR ---
DC GIVEN TO PT
--- NOTE | 2019-07-18 19:21 | NUR ---
REPORT RECEIVED, WILL CONTINUE PLAN OF CARE. PATIENT IS AAOX4, AND SITTING IN CHAIR. PATIENT IS AWAITING AMBULANCE TRANSFER. CL IN REACH. WILL CTM.
[2019-07-18 20:27] VITALS: BP 121/73
--- NOTE | 2019-07-25 08:42 | TEE ---
PATIENT:ONUR SHERMAN MEDICAL RECORD: [id number] [facility] AGE OF PATIENT: 69 ADMISSION DATE: 07/11/19 SEX: M REFERRING PHYSICIAN: INTERPRETING PHYSICIAN: MUNDO HERZOG MD TRANSESOPHAGEAL ECHOCARDIOGRAM Date: 07/16/19 THUY CHARGE Y INDICATIONS: ASSESS FOR CLOTS, TIA/CVA PREMEDICATIONS: PATIENT'S RESPONSE PROCEDURE DOPPLER MEASUREMENTS: LVIT LA PA 83 RA LVOT 83 RVOT 69 Asc. 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 Martin Clinical Laboratory Service Teacher: Carlotta MC COMMENTS: DATE OF SERVICE: 07/16/2019 After general sedation via TIVA via Anesthesia, transesophageal Omniplane probe was passed to the distal esophagus and proximal stomach without difficulty. FINDINGS: LVH is present. LV internal dimension appeared dilated. LV is globally hypokinetic with reduced EF. Estimated EF 25% to 30%. Aortic valve is tricuspid with good valve excursion and trivial AI. Left atrium appears dilated. Left atrial appendage is well visualized with good contractility via TRANSESOPHAGEAL ECHOCARDIOGRAM REPORT [id number] ONUR SHERMAN Doppler. There is qgjnmzkw-id-pcbxik MR. Right-sided chambers grossly normal. Moderate TR. IMPRESSION: We will plan for cardioversion in the near future. TRANSINT:[id number] Voice Confirmation ID: [id number] DOCUMENT ID: [id number] at 0842 CC: [id number] DICTATION DATE: 07/16/19 1350 DIE BARBER: 07/16/19 1405 DIS IN 07/18/19 [place] [address]
--- NOTE | 2019-07-25 08:42 | OP ---
PATIENT NAME: ONUR SHERMAN MEDICAL RECORD: [id number] :[birth year] LOCATION:D.M2 D.2129 ADMISSION DATE:07/11/19 SURGEON: MUNDO HERZOG MD DATE OF OPERATION: 07/16/2019 PROCEDURE: Cardioversion. DESCRIPTION OF PROCEDURE: After general sedation via TIVA via Anesthesia, single synchronized shock was successful in restoring atrial fibrillation to normal sinus rhythm. IMPRESSION: Successful cardioversion. COMPLICATIONS: None. DISPOSITION: To the floor, stable. TRANSINT:[id number] Voice Confirmation ID: [id number] DOCUMENT ID: [id number] MUNDO HERZOG MD at 0842 CC: [id number] DICTATION DATE: 07/16/19 1351 FUEL DOCK ATTENDANT: 07/16/19 1406 DIS IN 07/18/19 [facility] [address] [place] [address]
== END 2019-07-18 21:49 | DRG 291 ==
LOC: D.ER 13:24 → D.M2 15:01
PROVIDERS: Emergency Medicine; ADMIT Family Medicine; ATTEND Family Medicine
DX: I11.0 Hypertensive heart disease with heart failure (principal); J96.00 Acute respiratory failure, unspecified whether with hypoxia or hypercapnia; I48.92 Unspecified atrial flutter; K50.90 Crohn's disease, unspecified, without complications; J44.9 Chronic obstructive pulmonary disease, unspecified; E11.9 Type 2 diabetes mellitus without complications; M06.9 Rheumatoid arthritis, unspecified; I48.91 Unspecified atrial fibrillation; I25.10 Atherosclerotic heart disease of native coronary artery without angina pectoris; E78.5 Hyperlipidemia, unspecified; I42.9 Cardiomyopathy, unspecified; E03.9 Hypothyroidism, unspecified; I50.23 Acute on chronic systolic (congestive) heart failure; R91.8 Other nonspecific abnormal finding of lung field; N40.0 Benign prostatic hyperplasia without lower urinary tract symptoms; G47.33 Obstructive sleep apnea (adult) (pediatric); I08.1 Rheumatic disorders of both mitral and tricuspid valves

== ENCOUNTER 2019-08-07 12:00 | Observation (INO) | payer MEDICARE, OTHER ==
[~2019-08-07] VITALS: Ht 185.4 cm; Wt 121.6 kg
--- NOTE | ~2019-08-07 | HEMODYNAMI ---
PATIENT:ONUR SHERMAN MEDICAL RECORD: [id number] : [birth year] LOCATION:[facility] D.2120 ADMISSION DATE: 08/07/19 Generatedon:08/08/201912:21 Patient name: ONUR SHERMAN Patient #: [id number] SSN: : 1950 Date of study: 08/08/2019 Page: Of Hemodynamic Procedure Report Patient Data Patient Demographics Procedure consent was obtained First Name: ONUR Gender: Male Last Name: LANE : 1950 [facility] Initial: KEE Age: 69 year(s) Patient #: [id number] Race: Additional ID: [id number] Contact details [address]: [address] [place] [address] State: [place] City: [place] Zip code: [address] Past Medical History Allergies Allergen Reaction Date Comments Reported Penicillins 04/02/2019 Admission Admission Data Admission Date: 08/07/2019 Admission Time: 15:26 Room #: D2120 Height (in.): 72.83 BSA: 2.44 (m2) Height (cm.): 185 BMI: 35.65 (kg/m2) Weight (lbs.): 268.97 Weight (kg.): 122 Procedure Procedure Types Cath Procedure Diagnostic Procedure Cardioversion External Procedure Description Procedure Date Procedure Date: 08/08/2019 Procedure Start Time: 12:07 Procedure End Time: 12:20 Procedure Staff Name Function Ba Castillo MD Performing Physician Mayur Tejada RT Monitor Rusty Williamson RN Nurse Richard Harris MD Additional personnel Procedure Data Cath Procedure Fluoroscopy Diagnostic fluoroscopy Total fluoroscopy Time: 0 time: 0 min min Diagnostic fluoroscopy Total fluoroscopy dose: 0 dose: 0 mGy mGy Contrast Material Contrast Material Type Amount (ml) Isovue 300 0 Estimated blood loss: 0 ml Procedure Complications No complications Hemodynamics Rest BSA: 2.44 (m2) O2 Consumption: Estimated: 278.03 (ml/min) O2 Consumption indexed : Estimated:113.95 (ml/min/m) Heart Rate: 65 (bpm) Snapshots Pre Cath Intra NCS Post Cath Vital Signs Time Heart Resp SPO2 etCO2 NIBP Rhythm Pain Sedation Rate (ipm) (%) (mmHg) (mmHg) Status Level (bpm) 12:01:53 67 27 94 0 123/69(97) NSR 0 (11) 10(A) , No pain 12:06:09 62 30 94 0 117/62(98) NSR 0 (11) 10(A) , No pain 12:10:25 67 25 87 0 102/59(74) NSR 0 (11) 10(A) , No pain 12:14:41 63 16 92 37.6 103/53(83) NSR 0 (11) 10(A) , No pain 12:18:57 61 28 94 21 108/54(72) NSR 0 (11) 10(A) , No pain Procedure Log Time Note 11:38:18 Mayur CASAS(R) sent for patient. Start room use. 11:38:19 Time tracking: Regular hours (M-F 7:00 - 5:00) 11:38:23 Plan of Care:Hemodynamics will remain stable., Cardiac rhythm will remain stable., Comfort level will be maintained., Respiratory function will remain adequate., Patient/ family verbilizes understanding of procedure., Procedure tolerated without complication., Recovers from procedure without complications.. 11:39:10 Patient Height : 72.83 inches 11:39:15 Patient Weight : 268.97 lbs 11:53:29 Patient arrived from PCU to CCL 1. Patient remains on bed/stretcher for procedure. 11:53:31 Signed procedure consent form obtained from patient. 11:53:32 Warm blankets applied, and akiko hugger turned on for patient comfort. 11:53:32 Correct patient and procedure confirmed by team. 11:53:33 ECG and BP/O2 sat monitors applied to patient. 12:00:13 Richard Harris MD present and monitoring patient for TIVA. 12:00:45 Quick Combo opened to sterile field. 12:00:46 Vital chart was started 12:00:48 Baseline sample Acquired. 12:00:54 Rhythm: atrial fibrillation 12:01:00 Full Disclosure recording started 12:01:05 H&P Date Dictated: 08/07/2019 Within 30 days and on chart.. 12:01:06 Pre-procedure instructions explained to patient. 12:01:06 Pre-op teaching completed and patient verbalized understanding. 12:01:08 Family in patients room. 12:01:10 Patient NPO since Midnight. 12:01:13 Is the patient allergic to Iodine/contrast media? No. 12:02:09 Is patient on blood thinner?Yes 12:02:17 ACC The patient was administered the following blood thiners within the last 24 hours: ACCPlavix, Xarelto 12:02:23 Patient diabetic? Yes. 12:02:24 If diabetic: On Metformin? Unknown 12:02:29 Previous problem with sedation/anesthesia? No ? 12:02:54 Snore? Yes 12:02:55 Sleep apnea? Yes 12:02:56 Deviated septum? No 12:02:57 Opens mouth fully? Yes 12:02:58 Sticks out tongue? Yes 12:03:02 Airway obstruction? Yes COPD 12:03:12 Dentures? Yes OUT 12:03:24 IV patent on arrival in left forearm with 0.9% NaCl at O. 12:03:27 Lab results completed and on chart. 12:03:29 Alarms reviewed by Yoko Holbrook 12:04:14 Quick combo pads placed on patients chest and back. 12:06:24 --------ALL STOP TIME OUT------ 12:06:24 Final Timeout: patient, procedure, and site verified with staff and physician. All members of the team are in agreement. 12:06:31 Fire Safety Assessment: C--Open oxygen or nitrous oxide is being used., E--There are other possible contributors. 12:06:35 Physical assessment completed. ASA score P 4 - A patient with severe systemic disease that is a constant threat to life as per Ba Castillo MD. 12:06:41 Sedation plan: TIVA Medication:Propofol 12:07:40 Procedure started. 12:09:16 Defibrillator synced and charged to 275 Joules. 12:09:18 Shock delivered. 12:10:21 Patient cardioverted to sinus rhythm . 12:10:24 Procedure ended.(Physican Out) 12:10:33 Fluoroscopy time 00.00 minutes. 12:10:34 Flurop Dose total: 0 12::34 Fluoroscopy dose: 0 mGy 12:10:36 Dose Area Product 0 mGy/cm. 12:10:41 Contrast amount:Isovue 300 0ml. 12:10:46 Post Procedure Pulses reassessed and unchanged 12:10:57 Post-procedure physical assessment completed. ASA score P 4 - A patient with severe systemic disease that is a constant threat to life as per Ba Castillo MD. 12:11:22 Post procedure rhythm: sinus rhythm 12:11:25 Estimated blood loss: 0 ml 12:11:32 Post procedure instruction explained to patient.Patient verbalizes understanding. 12:11:33 Patient needs reinforcement of post procedure teaching. 12:11:38 Procedure and supply charges have been captured, reviewed, submitted and are correct. 12:11:41 Procedure Complication : No complications 12:19:30 Vital chart was stopped 12:19:31 See physician's report for complete and final results. 12:19:54 Report given to PCU. 12:19:58 Patient transfered to PCU with Stretcher. 12:20:00 Procedure ended. 12:20:00 Full Disclosure recording stopped 12:20:03 End room use (Document Last) Device Usage Item Manufacture Quantity Catalog Hospital Part Current Minimal Lot# / Name Number Charge Number Stock Stock Seri al# Code [employer] 1 [id number] Combo Signature Audit [place] Stage Time Signature Unsigned Intra-Procedure 08/08/2019 Mayur Tejada 12:21:11 PM RT(R) Signatures Performing Physician : Signature : Ba Castillo MD Date : Time : Monitor : Mayur Tejada RT Signature : Date : Time : Nurse : Rusty Williamson RN Signature : Date : Time : [place] [id number] [place] [address]
[~2019-08-07 12:00] MED LIST changes: +ENTRESTO 24 MG1 EACH PO; +K-DUR20 MEQ PO; +LEXAPRO10 MG PO; +XARELTO20 MG PO
[2019-08-07] MEDS ORDERED: AMIODARONE HCL200 MG PO (15:33)
[2019-08-07 15:59] LABS: BASOPHILS 0.5 % (0-2); EOSINOPHILS 2.3 % (0-7); HEMATOCRIT 32.9 % (42.0-54.0); HEMOGLOBIN 10.6 g/dL (13.5-17.5); IMMATURE GRANULOCYTES 0.2 % (0-5); LYMPHOCYTES 23.1 % (15-50); MCH 22.6 pg (26.0-34.0); MCHC 32.2 g/dL (31.0-37.0); MEAN PLATELET VOLUME 8.4 fL (7.4-10.4); MONOCYTES 9.3 % (2-11); NEUTROPHILS 64.6 % (40-80); PLATELET COUNT 202 10x3/uL (130-400); RDW 18.9 % (11.5-14.5); WBC 6.4 10x3/uL (4.8-10.8)
[2019-08-07 16:15] LABS: APTT 37.6 SECONDS (22.8-39.4); INR 1.78 (0.85-1.17); PROTIME 20.1 SECONDS (11.6-15.0)
[2019-08-07 16:21] LABS: ALBUMIN 2.8 g/dL (3.4-5.0); ALKALINE PHOSPHATASE 74 U/L (46-116); ALT (SGPT) 13 U/L (10-68); BILIRUBIN - TOTAL 0.69 mg/dL (0.2-1.3); CALC OSMOLALITY 276 mosm/kg (275-300); CARBON DIOXIDE 27.6 mmol/L (21.0-32.0); CHLORIDE - SERUM 103 mmol/L (98-107); CREATININE - SERUM 0.9 mg/dL (0.6-1.3); PROTEIN - SERUM 7.2 g/dL (6.4-8.2); SODIUM 137 mmol/L (136-145); UREA NITROGEN 16 mg/dL (7-18); eGFR NON AFRICAN AMERICAN 89 mL/min (90-120)
[2019-08-07 16:24] LABS: GLUCOSE 142 mg/dL (74-106)
[2019-08-07 16:36] LABS: CKMB 1.2 U/L (0.0-3.6); CREATINE KINASE 137 UL (21-232); PRO BNP 8761 pg/mL (0-125)
[2019-08-07 16:37] LABS: TROPONIN-I < 0.017 ng/mL (0.000-0.060)
--- NOTE | 2019-08-07 17:46 | NUR ---
TRANSFER FROM ER BY W/C. BOBBIINTED TO ROOM. CALL LIGHT IN REACH. WILL CONT. PLAN OF CARE.
[2019-08-07] MEDS ORDERED: COLACE100 MG PO (18:03)
[2019-08-07 18:18] VITALS: BP 118/75; BMI 35.4
[2019-08-07 20:00] VITALS: BP 116/64
[2019-08-08] VITALS: BP 117/64
[2019-08-08 05:43] VITALS: BP 118/53
--- NOTE | 2019-08-08 07:32 | NUR ---
ALERT AND ORIENTED. TELEMERTY SHOWS CAF 56. O2 AT 2 L/M PER NC. NPO FOR CARDIOVERSION. SR UP WITH CALL LIGHT IN REACH
[2019-08-08 09:16] VITALS: BP 120/64
[2019-08-08 12:08] VITALS: Ht 185.4 cm; Wt 121.6 kg
--- NOTE | 2019-08-08 12:13 | HP ---
PATIENT: ONUR SHERMAN MEDICAL RECORD: [id number] ACCOUNT: [id number] LOCATION:[address] : [birth year] ADMISSION DATE: 08/07/19 PCP: LEISA ISRAEL HISTORY AND PHYSICAL EXAMINATION DIAGNOSES: 1. Shortness of breath, dyspnea on exertion. 2. Pulmonary edema. 3. Atrial fibrillation. 4. Previous cardioversion. 5. Coronary artery disease. 6. Previous percutaneous transluminal coronary angioplasty stent. 7. Hypertension. 8. Hyperlipidemia. 9. Obesity. HISTORY OF PRESENT ILLNESS: This is a gentleman who presents with shortness of breath, palpitations, found to be in atrial fibrillation. He has had a history of atrial fibrillation on multiple agents for atrial fibrillation, currently on amiodarone. He has failed sotalol and failed propafenone in the past, cardioversion was less than a month ago. He has reverted back to atrial fibrillation. Chest x-ray is compatible with pulmonary edema and he is short of breath. PHYSICAL EXAMINATION: CONSTITUTIONAL/GENERAL APPEARANCE: Well nourished, well developed, appears stated age. EYES: Lids and conjunctivae noninjected. No discharge. No pallor. ENT: Lips within normal limit. No cyanosis. No pallor. NECK: Carotid arteries, bilateral normal upstroke. No bruits. No thrills. No jugular venous pressure or distention. CERVICAL LYMPH NODES: Nontender. Nonenlarged. THYROID: Not enlarged. No nodules. CARDIOVASCULAR: Precordial exam, nondisplaced. No heaves or pericardial thrills. Rate and rhythm, regular. Heart sounds, normal S1, normal S2. No S3, no gallop, no rub. Systolic murmur, not heard. Diastolic murmur, not heard. RESPIRATORY: Respiratory effort, unlabored. Normal curvature. No thoracic deformity. No chest wall tenderness. Percussion, resonant. Auscultation, clear. No wheezes, no rales, no rhonchi. ABDOMEN: Soft, nondistended, nontender. No abdominal pain, no vomiting and normal appetite. MUSCULOSKELETAL: No joint tenderness, normal gait, normal tone. SKIN: Warm and dry. OVERALL IMPRESSION: Atrial fibrillation and shortness of breath, pulmonary edema. We will bring him in, diurese him, increase his amiodarone to b.i.d., load him with digoxin as well. Given 1 dose of diltiazem for rate control. Plan for DC cardioversion in a.m. TRANSINT:[id number] Voice Confirmation ID: [id number] DOCUMENT ID: [id number] HISTORY AND PHYSICAL [id number] ONUR SHERMAN, JM DOUGLAS at 1213 CC: [id number] DICTATION DATE: 08/07/19 1621 ENVIRONMENTAL SERVICES WORKER: 08/07/19 1701 [facility] [address] [place] [address]
--- NOTE | 2019-08-08 12:47 | NUR ---
BACK FROM CARDIOVERSION. TELEMERTY SHOWS SR. SEDATED BUT OPENS HIS EYES TO VERBAL STIMULI. WILL MONITOR
[2019-08-08 13:20] VITALS: BP 127/56
--- NOTE | 2019-08-08 14:31 | OP ---
PATIENT NAME: ONUR SHERMAN MEDICAL RECORD: [id number] :48 LOCATION:D.M2 D.2120 ADMISSION DATE: SURGEON: JM LEGGETT MD DATE OF OPERATION: 08/08/2019 PROCEDURE: DC cardioversion. INDICATION: IV conscious sedation per anesthesia. Continuous heart rate, O2 saturation, and blood pressure monitoring all undertaken, all of which remained stable. He received 1 shock at 275 joules restoring sinus rhythm. OVERALL IMPRESSION: Successful DC cardioversion from atrial fibrillation to sinus rhythm. TRANSINT:[id number] Voice Confirmation ID: [id number] DOCUMENT ID: [id number] JM LEGGETT MD at 1431 CC: [id number] DICTATION DATE: 08/08/19 [address] AUTOTECH: 08/08/19 1216 [facility] [address] [place] [address]
[2019-08-08] MEDS ORDERED: LANOXIN125 MCG PO (14:40)
--- NOTE | 2019-08-08 14:49 | NUR ---
I have reviewed this patient and I concur with the Shift Assessment completed by the Licensed Practical Nurse today this shift.
--- NOTE | 2019-08-08 16:15 | NUR ---
PT DISCHARGED. IV DCD WITH TIP INTACT.TO PRIVATE CAR PER WHEELCHAIR
--- NOTE | 2019-08-09 15:34 | DS ---
PATIENT:ONUR PAREDES :[birth year] MEDICAL RECORD: [id number] DISCHARGE SUMMARY ADMISSION DATE: 08/07/19 DISCHARGE DATE: 08/08/19 DATE OF SERVICE: 08/08/2019 DIAGNOSES: 1. DC cardioversion. 2. Atrial fibrillation. 3. Shortness of breath. 4. Pulmonary edema. 5. Coronary artery disease. 6. Previous percutaneous transluminal coronary angioplasty and stent. 7. Hypertension. 8. Hyperlipidemia. 9. Obesity. HOSPITAL COURSE: Mr. Paredes presents with recurrent atrial fibrillation, shortness of breath. He received IV diuresis, this cleared this pulmonary edema and underwent successful DC cardioversion. We will continue his current medications. Follow up with Dr. Jm Friedman for possible AFib ablation. TRANSINT:[id number] Voice Confirmation ID: [id number] DOCUMENT ID: [id number] JM LEGGETT MD at 1534 CC: [id number] DICTATION DATE: 08/08/19 1211 FELLING BUCKING SUPERVISOR: 08/08/19 2353 DIS IN 08/08/19 [place] [address] [place] [address]
== END 2019-08-08 16:18 | disposition home or self-care (01) ==
LOC: EDSTATUS 12:00 → D.ER 15:26 → D.OPS 15:26 → D.M2 15:26 → OBSVTIME 16:15 → D.OPS 16:32 → D.M2 16:32 → EDSTATUS 17:09 → D.M2 08-08 16:18 → D.OPS 08-08 16:18 → D.M2 08-08 16:18
PROVIDERS: Emergency Medicine; ADMIT Internal Medicine Interventional Cardiology; ATTEND Internal Medicine Interventional Cardiology
DX: I48.91 Unspecified atrial fibrillation (principal); J81.1 Chronic pulmonary edema; I25.10 Atherosclerotic heart disease of native coronary artery without angina pectoris; I10 Essential (primary) hypertension; E78.5 Hyperlipidemia, unspecified; E66.9 Obesity, unspecified; Z68.35 Body mass index [BMI] 35.0-35.9, adult; E11.9 Type 2 diabetes mellitus without complications; K21.9 Gastro-esophageal reflux disease without esophagitis

== ENCOUNTER → 2019-10-30 17:16 | Outpatient (CLI) | payer MEDICARE, OTHER ==
[2019-08-08 12:08] VITALS: BMI 35.3
[~2019-10-30 17:16] MED LIST changes: +AMIODARONE HCL200 MG PO; +COLACE100 MG PO; +LANOXIN125 MCG PO
[2019-10-30 17:46] LABS: CHOL - HDL RATIO 2.8 ratio (2.3-4.9); LDL-HDL RATIO 1.4 ratio (1.5-3.5)
== END | disposition home or self-care (01) ==
LOC: D.LABREF 17:16
PROVIDERS: ATTEND Internal Medicine Cardiovascular Disease
DX: E78.5 Hyperlipidemia, unspecified (principal)

== ENCOUNTER → 2020-06-22 10:00 | Outpatient (CLI) | payer MEDICARE, OTHER ==
[2019-08-08 12:08] VITALS: BMI 35.3
== END | disposition home or self-care (01) ==
LOC: D.CT 10:00
PROVIDERS: ATTEND Nurse Practitioner Family
DX: I70.213 Atherosclerosis of native arteries of extremities with intermittent claudication, bilateral legs (principal); I10 Essential (primary) hypertension; E11.9 Type 2 diabetes mellitus without complications; E03.9 Hypothyroidism, unspecified; Z79.4 Long term (current) use of insulin

== ENCOUNTER → 2021-04-19 11:18 | Outpatient (CLI) | payer MEDICARE, OTHER ==
[2019-08-08 12:08] VITALS: BMI 35.3
== END | disposition home or self-care (01) ==
LOC: D.LAB 11:18
PROVIDERS: ATTEND Internal Medicine Pulmonary Disease
DX: Z11.52 Encounter for screening for COVID-19 (principal)

== ENCOUNTER → 2021-04-23 12:31 | Outpatient (CLI) | payer MEDICARE, OTHER ==
[2019-08-08 12:08] VITALS: BMI 35.3
--- NOTE | 2021-04-23 15:50 | NUR ---
UNABLE TO DO WALK TEST, PT COULD ONLY TRANSFER FROM TO [facility] HANGING ON TO GRAB BAR
== END | disposition home or self-care (01) ==
LOC: D.RT 12:31
PROVIDERS: ATTEND Internal Medicine Pulmonary Disease
DX: J45.909 Unspecified asthma, uncomplicated (principal)

== ENCOUNTER 2021-05-05 12:00 | Day surgery (SDC) | payer MEDICARE, OTHER ==
[~2021-05-05] VITALS: Ht 182.9 cm; Wt 120.5 kg
--- NOTE | ~2021-05-05 | HEMODYNAMI ---
PATIENT:ONUR SHERMAN MEDICAL RECORD: [id number] : 48 LOCATION:[facility] ADMISSION DATE: 05/05/21 Generatedon:113:35 Patient name: ONUR SHERMAN Patient #: [id number] SSN: [id number] : 1950 Date of study: 05/05/2021 Page: Of Hemodynamic Procedure Report Patient Data Patient Demographics Procedure consent was obtained First Name: ONUR Gender: Male Last Name: LANE : 1950 Middle Initial: KEE Age: 70 year(s) Patient #: [id number] Race: SSN: [id number] Additional ID: [id number] Contact details Address: [address] [place] [address] State: [place] City: [facility] Zip code: [address] Past Medical History Allergies Allergen Reaction Date Comments Reported Penicillins 04/02/2019 Other allergy 05/05/2021 N Admission Admission Data Admission Date: 05/05/2021 Admission Time: 12:00 Arrival Date: 05/05/2021 Arrival Time: 14:00 Admit Source: Other Insurance Payor: Medicare [facility] #: [id number] Height (in.): 72 BSA: 2.39 (m2) Height (cm.): 182.88 BMI: 35.53 (kg/m2) Weight (lbs.): 262 Weight (kg.): 118.84 Lab Results Lab Result Date: 05/05/2021 Lab Result Time: 0:00 Biochemistry Name Units Result Min Max BUN mg/dl 20 --(----)*- 7 18 Creatinine mg/dl 0.9 --(-*--)-- 0.6 1.3 eGFR ml/min 88.56726 -*(----)-- 90 120 NONAFRICAN CBC Name Units Result Min Max Hematocrit % 47.5 --(-*--)-- 42 54 Hemoglobin g/dl 15.3 --(-*--)-- 13.5 17.5 Procedure Procedure Types Cath Procedure Diagnostic Procedure Cardioversion External Procedure Description Procedure Date Procedure Date: 05/05/2021 Procedure Start Time: 13:25 Procedure End Time: 13:33 Procedure Staff Name Function Adela Browne RT Monitor Kenia Mckeon RT Scrub Roger Dubon RN Nurse Richard Harris MD Additional personnel Adarsh Holden MD Performing Physician Procedure Data Cath Procedure Estimated blood loss: 0 ml Procedure Complications No complications Procedure Medications Medication Administration Route Dosage 0.9% NaCl I.V. 25 ml/hr Oxygen etCO2 Nasal cannula 2 l/min Refer to Anesthesia Notes for Sedation Medications Hemodynamics Rest BSA: 2.39 (m2) HGB: 15.3 (g/dl) O2 Consumption: Estimated: 265.77 (ml/min) O2 Consumption indexed: Estimated:111.2 (ml/min/m) Heart Rate: 58 (bpm) Snapshots Pre Cath Intra NCS Post Cath Vital Signs Time Heart Resp SPO2 etCO2 NIBP (mmHg) Rhythm Pain Sedation Rate (ipm) (%) (mmHg) Status Level (bpm) 13:19:31 65 30 100 0 131/73(105) A-Fib 0 (11) 10(A) , No pain 13:23:55 53 28 100 0 149/82(115) A-Fib 0 (11) 10(A) , No pain 13:28:19 47 22 100 2.2 122/65(97) SB 0 (11) 10(A) , No pain 13:32:36 48 18 100 8.9 119/73(90) NSR 0 (11) 10(A) , No pain Medications Time Medication Route Dose Verified Delivered Reason Notes Effective ness by by 13:23:55 0.9% NaCl I.V. 25 Adarsh Roger used for ml/hr Navin Dubon RN procedure 13:24:08 Oxygen etCO2 2 Adarsh Roger used for Nasal l/min Navin Dubon RN procedure cannula 13:24:12 Refer to Adarsh Roger Anesthesia Navin Dubon RN Notes for Sedation Medications Procedure Log Time Note 12:34:28 Informed consent obtained and on chart 12:36:13 Admit Source: Other 12:36:18 Arrival Date: 05/05/2021 2:00:00 PM 12:36:45 Insurance Payor : Medicare 12:37:00 Patient Height : 72 inches 12:37:02 Patient Weight : 262 lbs 12:37:30 Diagnostic Cath Status : Elective 13:05:00 Kenia Mckeon RT(R) sent for patient. Start room use. 13:10:13 ACC Patient presents with Stable Angina CCS Anginal Class 2--Slight limitation of ordinary activity. 13:10:18 Procedure Status Cardioversion. 13:10:34 Time tracking: Regular hours (M-F 7:00 - 5:00) 13:10:39 Plan of Care:Hemodynamics will remain stable., Cardiac rhythm will remain stable., Comfort level will be maintained., Respiratory function will remain adequate., Patient/ family verbilizes understanding of procedure., Procedure tolerated without complication., Recovers from procedure without complications.. 13:10:47 Patient received from Pre/Post Procedure Room to CCL 1 Alert and oriented. Tansferred to table in Supine position. 13:10:48 Warm blankets applied, and akiko hugger turned on for patient comfort. 13:10:48 Correct patient and procedure confirmed by team. 13:10:49 ECG and BP/O2 sat monitors applied to patient. 13:10:50 Full Disclosure recording started 13:10:59 H&P Date Dictated: 04/27/2021 Within 30 days and on chart.. 13:11:00 Pre-procedure instructions explained to patient. 13:11:01 Pre-op teaching completed and patient verbalized understanding. 13:11:03 Family in waiting room. 13:11:04 Patient NPO since Midnight. 13:11:09 Patient allergic to Other allergyPCN 13:11:26 Is the patient allergic to Iodine/contrast media? No. 13:11:30 Was the patient premedicated? No 13:11:32 Is patient on blood thinner?No 13:12:17 Lab Result : Hematocrit 47.5 % 13:12:17 Lab Result : Hemoglobin 15.3 g/dl 13:15:56 ----Pre-sedation anethsthesia assessment.---- 13:16:01 Previous problem with sedation/anesthesia? No ? 13:16:04 Snore? Yes 13:16:05 Sleep apnea? Unknown 13:16:09 Deviated septum? No 13:16:10 Opens mouth fully? Yes 13:16:11 Sticks out tongue? Yes 13:16:50 Airway obstruction? No ? 13:17:07 Dentures? No ? 13:17:11 Pre procedure: right dorsailis pedis pulse 1+ Palpable, but thready & weak; easily obliterated 13:17:15 Patient pain scale 0/10 ?. 13:17:22 IV patent on arrival in left antecubital with 0.9% NaCl at [facility]. 13:17:58 Lab results completed and on chart. 13:18:05 Stress Test: no; N/A ? 13:18:06 Alarms reviewed by R. N. 13:18:07 Sharps counted by scrub and verified by R.N. 13:18:11 Vital chart was started 13:18:14 Baseline sample Acquired. 13:18:20 Rhythm: atrial fibrillation 13:20:52 Lab Result : eGFR NONAFRICAN 88.84547 ml/min 13:20:52 Lab Result : Creatinine 0.9 mg/dl 13:20:52 Lab Result : BUN 20 mg/dl 13:22:09 MANOJ REY HERE FOR ANETHESIA. 13:22:18 --------ALL STOP TIME OUT------ 13:22:21 Final Timeout: patient, procedure, and site verified with staff and physician. All members of the team are in agreement. 13:22:28 Fire Safety Assessment: A--An alcohol-based skin anteseptic being used preoperatively., C--Open oxygen or nitrous oxide is being used., D--An ESU, laser, or fiber-optic light is being used. 13:22:32 Physical assessment completed. ASA score P 2 - A patient with mild systemic disease as per Adarsh Holden MD. 13:22:38 Sedation plan: TIVA Medication:Propofol 13:23:55 0.9% NaCl 25 ml/hr I.V. was administered by Roger Dubon RN; used for procedure; Verbal order read back and verified. 13:24:00 Quick Combo opened to sterile field. 13:24:08 Oxygen 2 l/min etCO2 Nasal cannula was administered by Roger Dubon RN; used for procedure; Verbal order read back and verified. 13:24:12 Refer to Anesthesia Notes for Sedation Medications was administered by Roger Dubon RN; ; Verbal order read back and verified. 13:25:41 ------Cardioversion------ 13:25:44 Procedure started. 13:26:05 Quick combo pads placed on patients chest and back. 13:27:15 Defibrillator synced and charged to 200 Joules. 13:27:17 Shock delivered. 13:27:35 Patient cardioverted to sinus bradycardia. 13:27:50 Procedure ended.(Physican Out) 13:28:39 Post Procedure Pulses reassessed and unchanged 13:29:10 Post procedure rhythm: sinus bradycardia 13:29:12 Post-procedure physical assessment completed. ASA score P 2 - A patient with mild systemic disease as per Adarsh Holden MD. 13:29:38 Estimated blood loss: 0 ml 13:29:40 Post procedure instruction explained to patient.Patient verbalizes understanding. 13:29:40 Patient needs reinforcement of post procedure teaching. 13:33:28 Procedure and supply charges have been captured, reviewed, submitted and are correct. 13:33:33 Procedure Complication : No complications 13:33:40 Operative report dictated upon procedure completion. 13:33:41 See physician's report for complete and final results. 13:33:42 Report given to Pre/Post Procedure Room. 13:33:45 Patient transfered to Pre/Post Procedure Room with Stretcher. 13:33:48 Procedure ended. 13:33:48 Full Disclosure recording stopped 13:33:56 End room use (Document Last) 13:34:11 End room use (Document Last) 13:34:47 End room use (Document Last) 13:35:12 Vital chart was stopped Device Usage Item Manufacture Quantity Catalog Hospital Part Current Minimal Lot# / Name Number Charge Number Stock Stock Amisha al# Code [employer] 1 [id number] Combo Signature Audit [place] Stage Time Signature Unsigned Intra-Procedure 05/05/2021 Adela Browne 1:34:11 PM RT(R) Intra-Procedure 05/05/2021 Roger Dubon RN 1:34:47 PM Intra-Procedure 05/05/2021 Adarsh Holden MD 1:35:10 PM [facility] [address] [id number]
[2021-05-05] MEDS ORDERED: MULTI-DAY VITAM1 TAB PO (12:26)
[2021-05-05] MEDS ORDERED: FARXIGA10 MG PO (12:33)
[2021-05-05] MEDS ORDERED: TOPROL XL25 MG PO (12:33)
[2021-05-05] MEDS ORDERED: BETAPACE 80 MG80 MG PO (12:33)
[2021-05-05 12:43] VITALS: BP 137/73; Ht 182.9 cm; Wt 120.5 kg
[2021-05-05 12:59] LABS: BASOPHILS 1.2 % (0-2); HEMATOCRIT 47.5 % (42.0-54.0); HEMOGLOBIN 15.3 g/dL (13.5-17.5); LYMPHOCYTES 22.8 % (15-50); MCH 23.9 pg (26.0-34.0); MCHC 32.3 g/dL (31.0-37.0); MCV 74.1 fL (80.0-100.0); MEAN PLATELET VOLUME 6.6 fL (7.4-10.4); MONOCYTES 7.8 % (2-11); NEUTROPHILS 65.2 % (40-80); PLATELET COUNT 209 10x3/uL (130-400); RBC 6.41 10x6/uL (4.20-6.10); RDW 18.3 % (11.5-14.5); WBC 8.9 10x3/uL (4.8-10.8)
[2021-05-05 13:07] LABS: CALC OSMOLALITY 281 mosm/kg (275-300); CARBON DIOXIDE 28.8 mmol/L (21.0-32.0); CHLORIDE - SERUM 103 mmol/L (98-107); CREATININE - SERUM 0.9 mg/dL (0.6-1.3); GLUCOSE 147 mg/dL (74-106); POTASSIUM - SERUM 4.5 mmol/L (3.5-5.1); SODIUM 138 mmol/L (136-145); UREA NITROGEN 20 mg/dL (7-18); eGFR NON AFRICAN AMERICAN 88 mL/min (90-120)
[2021-05-05 13:15] LABS: INR 1.47 (0.85-1.17); PROTIME 16.6 SECONDS (11.6-15.0)
--- NOTE | 2021-05-05 13:41 | NUR ---
PT ARRIVED BY STRETCHER. PLACED ON MONITORS. ASSESSMENT COMPLETED. VSS AT THIS TIME. CALL LIGHT WITHIN REACH. FAMILY AT BEDSIDE.
--- NOTE | 2021-05-05 13:56 | NUR ---
PT AWAKE AND ALERT. DENIES NAUSEA/PAIN. VSS AT THIS TIME. CALL LIGHT WITHIN REACH. PT IN SINUS BRADYCARDIA. RATE 54. PT SET UP WITH DRINK AND SANDWICH TRAY. FAMILY AT BEDSIDE.
--- NOTE | 2021-05-05 14:25 | NUR ---
PT RESTING COMFORTABLY. VSS AT THIS TIME. CALL LIGHT WITHIN REACH. PT SINUS SARAH ON MONITOR. RATE 49. BP 125/61. FAMILY AT BEDSIDE.
--- NOTE | 2021-05-05 15:00 | NUR ---
DR. SINCLAIR ROUNDED AND SPOKE WITH PT AND PT'S FAMILY. PT IN SR RATE 52. PIV D/C'D WITH CATH TIP INTACT. TOLERATED WELL. DISCUSSED DISCHARGE INSTRUCTIONS WITH PT AND PT'S FAMILY. THEY VOICED UNDERSTANDING. PT INSTRUCTED TO GET UP AND DRESSED AT THIS TIME. NO ASSISTANCE NEEDED. CALL LIGHT WITHIN REACH.
--- NOTE | 2021-05-05 15:10 | NUR ---
PT TAKEN OUT TO VEHICLE BY WHEELCHAIR. NO S/S OF DISTRESS NOTED. ALL BELONGINGS AND PAPERWORK IN HAND.
== END 2021-05-05 15:10 | disposition home or self-care (01) ==
LOC: D.CATH 12:00
PROVIDERS: ATTEND Internal Medicine Cardiovascular Disease
DX: I48.0 Paroxysmal atrial fibrillation (principal); I42.9 Cardiomyopathy, unspecified; R06.00 Dyspnea, unspecified; I10 Essential (primary) hypertension; I25.10 Atherosclerotic heart disease of native coronary artery without angina pectoris